=== PATIENT | female | born 1980 | race Caucasian/White ===

== ENCOUNTER 2018-03-13 00:15 | Emergency (ER) | payer SELFPAY ==
[2018-03-13] MEDS: AMOXICILLIN 250 MG CAPSULE. PO (01:35)
[2018-03-13] MEDS: HYDROcodone/APAP 5/325MG 1 TAB TABLET PO (01:36)
== END 2018-03-13 01:37 | disposition home or self-care (01) ==
LOC: ER 00:15
DX: K02.9 Dental caries, unspecified (principal); Z87.442 Personal history of urinary calculi; I25.2 Old myocardial infarction; Z88.2 Allergy status to sulfonamides; Z88.6 Allergy status to analgesic agent; Z91.041 Radiographic dye allergy status; Z91.040 Latex allergy status
CPT/HCPCS: 99283

== ENCOUNTER 2018-05-03 13:02 | Emergency (ER) | payer SELFPAY ==
[2018-05-03] MEDS: HYDROcodone/APAP 5/325MG 1 TAB TABLET PO (15:11)
[2018-05-03] MEDS: predniSONE 10 MG TABLET PO (15:11)
[2018-05-03] MEDS: METHOCARBAMOL 750 MG TABLET PO (15:11)
== END 2018-05-03 15:18 | disposition home or self-care (01) ==
LOC: ER 13:02
DX: S63.501A Unspecified sprain of right wrist, initial encounter (principal); M54.5 Low back pain; G89.29 Other chronic pain; E78.00 Pure hypercholesterolemia, unspecified; I10 Essential (primary) hypertension; I25.2 Old myocardial infarction; Z90.49 Acquired absence of other specified parts of digestive tract; Z90.710 Acquired absence of both cervix and uterus; Z88.2 Allergy status to sulfonamides; Z88.8 Allergy status to other drugs, medicaments and biological substances; Z88.6 Allergy status to analgesic agent; Z91.041 Radiographic dye allergy status; Z91.040 Latex allergy status; W01.0XXA Fall on same level from slipping, tripping and stumbling without subsequent striking against object, initial encounter; Y93.89 Activity, other specified; Y92.89 Other specified places as the place of occurrence of the external cause; Y99.8 Other external cause status
CPT/HCPCS: 73110; 99284; J7512

== ENCOUNTER 2018-06-27 15:14 | Emergency (ER) | payer SELFPAY ==
[~2018-06-27] VITALS: Ht 165.1 cm; Wt 83.0 kg
[~2018-06-27 15:14] MED LIST: AMOX500T PO; HYDR-2758 PO; HYDR-971 PO; METH-38 PO; PRED50TA PO
[2018-06-27] MEDS ORDERED: IV NORMAL SALINE 1000ML BAG 1,000 ML IV SCH (15:44)
[2018-06-27 15:54] LABS: BASO # 0.1 x10^3/uL (0.0-0.2); BASO % 1 % (0-3); EOS # 0.2 x10^3/uL (0.0-0.7); EOS % 2 % (0-3); HEMATOCRIT 41.5 % (36.0-47.0); HEMOGLOBIN 14.7 g/dL (12.0-15.5); LYMPH # 4.3 x10^3/uL (1.0-4.8); LYMPH % 42 % (24-48); MEAN CORPUSCULAR HEMOGLOBIN 33 pg (25-35); MEAN CORPUSCULAR HGB CONC 36 g/dL (31-37); MEAN CORPUSCULAR VOLUME 93 fL (79-100); MONO # 0.5 x10^3/uL (0.0-1.1); MONO % 5 % (0-9); NEUT # 5.2 x10^3uL (1.8-7.7); NEUT % 51 % (31-73); PLATELET COUNT 262 x10^3/uL (140-400); RED BLOOD COUNT 4.46 x10^6/uL (3.50-5.40); RED CELL DISTRIBUTION WIDTH 13.7 % (11.5-14.5); WHITE BLOOD COUNT 10.2 x10^3/uL (4.0-11.0)
[2018-06-27 16:03] LABS: PROTHROMBIN TIME PATIENT 11.3 SEC (11.7-14.0)
--- NOTE | 2018-06-27 16:04 | EKG ---
[facility] [address] [place] [address] Test Date: 2018-06-27 Test Time: 15:22:45 Pat Name: MIR MARTINEZ Department: Room: Gender: F Therapy Site Coordinator: : 1980 Requested By: CHAN EPPS Order Number: [id number] Reading MD: Chris Dillon MD Measurements Intervals Bonnie Rate: 65 P: 0 SC: 128 QRS: 51 QRSD: 80 T: 39 QT: 390 QTc: 406 Interpretive Statements SINUS RHYTHM Electronically Signed On 06-28-2018 12:46:38 CDT by Chris Dillon MD
[2018-06-27 16:05] LABS: D-DIMER 0.28 ug/mlFEU (0.00-0.50)
--- NOTE | 2018-06-27 16:12 | PHYS DOC ---
Past Medical History Past Medical History: A-Fib, Arrhythmia, High Cholesterol, Hypertension, Kidney Infection, Kidney Stone, Other Additional Past Medical Histor: POLYCYSTIC KIDNEY DISEASE Past Surgical History: Angioplasty, Appendectomy, Cholecystectomy, Hysterectomy , Other Additional Past Surgical Histo: CARDIAC STENTS,HEMORRHOID,BLADDER SLING Additional Information: 0.5 PPD Alcohol Use: None Drug Use: None Adult General Chief Complaint Chief Complaint: CHEST PAIN HPI HPI Patient is a 37 year old female presented to ER today for evaluation of left- sided chest pain that she has been experiencing for 2 days. She denies any cough , no fever. She denies any abdominal pain, no nausea vomiting. Patient said THE chest pain got worse with cough. She says she has history of atrial fibrillation, and she is only on propranolol for it. She is a smoker, she has history of hysterectomy as well. Patient denies any recent operation, no recent travel. Review of Systems Review of Systems Constitutional: Denies fever or chills [] Eyes: Denies change in visual acuity, redness, or eye pain [] HENT: Denies nasal congestion or sore throat [] Respiratory: Denies cough or shortness of breath [] Cardiovascular: Positive for chest pain GI: Denies abdominal pain, nausea, vomiting, bloody stools or diarrhea [] : Denies dysuria or hematuria [] Musculoskeletal: Denies back pain or joint pain [] Integument: Denies rash or skin lesions [] Neurologic: Denies headache, focal weakness or sensory changes [] Endocrine: Denies polyuria or polydipsia [] All other systems were reviewed and found to be within normal limits, except as documented in this note. Current Medications Current Medications Current Medications Medications (Trade) Dose Ordered Sig/Alexis Start Time Stop Time Status Last Admin Dose Admin Sodium Chloride 1,000 ml @ 1,000 mls/hr Q1H 06/27/18 15:44 06/27/18 16:43 DC 06/27/18 16:18 1,000 MLS/HR Allergies Allergies Allergies Coded Allergies Type Severity Reaction Last Updated Verified Iodinated Contrast- Oral and IV Dye Allergy Unknown 03/13/18 Yes NSAIDS (Non-Steroidal Anti-Inflamma Allergy Unknown 03/13/18 Yes Sulfa (Sulfonamide Antibiotics) Allergy Unknown 03/13/18 Yes ibuprofen Allergy Unknown 03/13/18 Yes latex Allergy Unknown 03/13/18 Yes Physical Exam Physical Exam Constitutional: Well developed, well nourished, no acute distress, non-toxic appearance. [] HENT: Normocephalic, atraumatic, bilateral external ears normal, oropharynx moist, no oral exudates, nose normal. [] Eyes: PERRLA, EOMI, conjunctiva normal, no discharge. [] Neck: Normal range of motion, no tenderness, supple, no stridor. [] Cardiovascular:Heart rate regular rhythm, no murmur [] Lungs & Thorax: Bilateral breath sounds clear to auscultation [] Abdomen: Bowel sounds normal, soft, no tenderness, no masses, no pulsatile masses. [] Skin: Warm, dry, no erythema, no rash. [] Back: No tenderness, no CVA tenderness. [] Extremities: No tenderness, no cyanosis, no clubbing, ROM intact, no edema. [] Neurologic: Alert and oriented X 3, normal motor function, normal sensory function, no focal deficits noted. [] Psychologic: Affect normal, judgement normal, mood normal. [] Current Patient Data Vital Signs Vital Signs Date Time Temp Pulse Resp B/P (MAP) Pulse Ox O2 Delivery O2 Flow Rate FiO2 06/27/18 15:36 97.9 64 20 119/86 (97) 99 Room Air 97.9 Lab Values Laboratory Tests Test 06/27/18 15:30 06/27/18 16:19 White Blood Count 10.2 x10^3/uL (4.0-11.0) Red Blood Count 4.46 x10^6/uL (3.50-5.40) Hemoglobin 14.7 g/dL (12.0-15.5) Hematocrit 41.5 % (36.0-47.0) Mean Corpuscular Volume 93 fL (79-100) Mean Corpuscular Hemoglobin 33 pg (25-35) Mean Corpuscular Hemoglobin Concent 36 g/dL (31-37) Red Cell Distribution Width 13.7 % (11.5-14.5) Platelet Count 262 x10^3/uL (140-400) Neutrophils (%) (Auto) 51 % (31-73) Lymphocytes (%) (Auto) 42 % (24-48) Monocytes (%) (Auto) 5 % (0-9) Eosinophils (%) (Auto) 2 % (0-3) Basophils (%) (Auto) 1 % (0-3) Neutrophils # (Auto) 5.2 x10^3uL (1.8-7.7) Lymphocytes # (Auto) 4.3 x10^3/uL (1.0-4.8) Monocytes # (Auto) 0.5 x10^3/uL (0.0-1.1) Eosinophils # (Auto) 0.2 x10^3/uL (0.0-0.7) Basophils # (Auto) 0.1 x10^3/uL (0.0-0.2) Prothrombin Time 11.3 SEC (11.7-14.0) L Prothrombin Time INR 0.9 (0.8-1.1) D-Dimer ([place]) 0.28 ug/mlFEU (0.00-0.50) Sodium Level 142 mmol/L (136-145) Potassium Level 4.1 mmol/L (3.5-5.1) Chloride Level 103 mmol/L (98-107) Carbon Dioxide Level 28 mmol/L (21-32) Anion Gap 11 (6-14) Blood Urea Nitrogen 13 mg/dL (7-20) Creatinine 0.8 mg/dL (0.6-1.0) Estimated GFR (Cockcroft-Gault) 80.7 BUN/Creatinine Ratio 16 (6-20) Glucose Level 87 mg/dL (70-99) Calcium Level 8.8 mg/dL (8.5-10.1) Magnesium Level 1.9 mg/dL (1.8-2.4) Total Bilirubin 0.2 mg/dL (0.2-1.0) Aspartate Amino Transferase (AST) 18 U/L (15-37) Alanine Aminotransferase (ALT) 31 U/L (14-59) Alkaline Phosphatase 80 U/L (46-116) Creatine Kinase 73 U/L (26-192) Creatine Kinase MB (Mass) 1.1 ng/mL (0.0-3.6) Creatine Kinase MB Relative Index % (0-4) Troponin I Quantitative < 0.017 ng/mL (0.000-0.055) TO-Nhs-B-Type Natriuretic Peptide 57 pg/mL (0-124) Total Protein 7.6 g/dL (6.4-8.2) Albumin 4.3 g/dL (3.4-5.0) Albumin/Globulin Ratio 1.3 (1.0-1.7) Lipase 140 U/L (73-393) Urine Collection Type Unknown Urine Color Yellow Urine Clarity Clear Urine pH 5.0 Urine Specific [place] 1.020 Urine Protein Negative mg/dL (NEG-TRACE) Urine Glucose (UA) Negative mg/dL (NEG) Urine Ketones (Stick) Negative mg/dL (NEG) Urine Blood Small (NEG) Urine Nitrite Negative (NEG) Urine Bilirubin Negative (NEG) Urine Urobilinogen Dipstick 0.2 mg/dL (0.2 mg/dL) Urine Leukocyte Esterase Negative (NEG) Urine RBC Occ /HPF (0-2) Urine WBC Occ /HPF (0-4) Urine Squamous Epithelial Cells Mod /LPF Urine Bacteria Few /HPF (0-FEW) Urine Mucus Mod /LPF Urine Opiates Screen Neg (NEG) Urine Methadone Screen Neg (NEG) Urine Barbiturates Neg (NEG) Urine Phencyclidine Screen Neg (NEG) Urine Amphetamine/Methamphetamine Neg (NEG) Urine Benzodiazepines Screen Neg (NEG) Urine Cocaine Screen Pos (NEG) Urine Cannabinoids Screen Neg (NEG) Urine Ethyl Alcohol Neg (NEG) Laboratory Tests 06/27/18 15:30 Laboratory Tests 06/27/18 15:30 EKG EKG EKG done at 15: 22 shown heart rate of 65 beats per minutes, normal sinus rhythm, NO STEMI. Radiology/Procedures Radiology/Procedures [][facility] [address] [place] [address] IMAGING REPORT Signed PATIENT: MIR MARTINEZ ACCOUNT: [id number] : 1980 LOCATION: ER AGE: 37 SEX: F EXAM STATUS: REG ER ORD. PHYSICIAN: CHAN EPPS DO REASON: CHEST PAIN PROCEDURE: PORTABLE CHEST 1V EXAM: Chest, single view. HISTORY: Chest pain. COMPARISON: None. FINDINGS: A frontal view of the chest is obtained. There is no infiltrate, pleural effusion or pneumothorax. The heart is normal in size. IMPRESSION: No acute pulmonary finding. Electronically signed by: Salena Sosa MD (06/27/2018 4:16 PM) [place] [id number] DICTATED and SIGNED BY: SALENA SOSA MD DATE: 06/27/18 7444 Course & Med Decision Making Course & Med Decision Making Pertinent Labs and Imaging studies reviewed. (See chart for details) [] Dragon Disclaimer Dragon Disclaimer This electronic medical record was generated, in whole or in part, using a voice recognition dictation system. Departure Departure Impression: Primary Impression: Chest pain Disposition: 01 HOME, SELF-CARE Condition: STABLE Referrals: NO PCP (PCP) FOLLOW UP WITH YOUR DOCTOR THIS WEEK Patient Instructions: Chest Pain (Nonspecific) CHAN EPPS DO Jun 27, 2018 16:12
[2018-06-27 16:15] LABS: CALCIUM 8.8 mg/dL (8.5-10.1); CREATININE 0.8 mg/dL (0.6-1.0); GFR 80.7; POTASSIUM 4.1 mmol/L (3.5-5.1)
[2018-06-27 16:17] VITALS: BP 148/83
--- NOTE | 2018-06-27 16:20 | RAD ---
EXAM: Chest, single view. HISTORY: Chest pain. COMPARISON: None. FINDINGS: A frontal view of the chest is obtained. There is no infiltrate, pleural effusion or pneumothorax. The heart is normal in size. IMPRESSION: No acute pulmonary finding. Electronically signed by: Salena Sosa MD (06/27/2018 4:16 PM) [place] [id number]
[2018-06-27 16:21] LABS: ALBUMIN 4.3 g/dL (3.4-5.0); ALBUMIN/GLOBULIN RATIO 1.3 (1.0-1.7); MAGNESIUM 1.9 mg/dL (1.8-2.4); TOTAL BILIRUBIN 0.2 mg/dL (0.2-1.0); TOTAL PROTEIN 7.6 g/dL (6.4-8.2)
[2018-06-27 16:30] LABS: BILIRUBIN,URINE NEGATIVE (NEG); CLARITY,URINE CLEAR; COLOR,URINE YELLOW; NITRITE,URINE NEGATIVE (NEG); PROTEIN,URINE NEGATIVE (NEG-TRACE); UROBILINOGEN,URINE 0.2 mg/dL (0.2 mg/dL)
[2018-06-27 16:36] LABS: BARBITURATES NEG (NEG); BENZODIAZEPINES NEG (NEG); CANNABINOIDS NEG (NEG); COCAINE POS (NEG); METHADONE NEG (NEG); OPIATES NEG (NEG); PHENCYCLIDINE NEG (NEG)
[2018-06-27 16:37] LABS: AMPHETAMINE/METHAMPHETAMINE NEG (NEG)
[2018-06-27 16:39] LABS: BACTERIA,URINE FEW /HPF (0-FEW); RBC,URINE OCC /HPF (0-2); SQUAMOUS EPITHELIAL CELL,UR MOD /LPF; WBC,URINE OCC /HPF (0-4)
[2018-06-27 16:44] LABS: CREATINE KINASE 73 U/L (26-192)
== END 2018-06-27 16:57 | disposition home or self-care (01) ==
LOC: ER 15:14
DX: R07.89 Other chest pain (principal); I48.91 Unspecified atrial fibrillation; E78.00 Pure hypercholesterolemia, unspecified; I10 Essential (primary) hypertension; Z90.49 Acquired absence of other specified parts of digestive tract; Z90.710 Acquired absence of both cervix and uterus; Z88.2 Allergy status to sulfonamides; Z88.6 Allergy status to analgesic agent; Z91.041 Radiographic dye allergy status; Z91.040 Latex allergy status
CPT/HCPCS: 36415; 71045; 80053; 80307; 81001; 82550; 82553; 83690; 83735; 83880; 84484; 85025; 85379; 85610; 93005; 99285; J7030; G0479

== ENCOUNTER 2018-07-27 10:09 | Emergency (ER) | payer SELFPAY ==
[~2018-07-27] VITALS: Ht 165.1 cm; Wt 82.6 kg
[2018-07-27 10:28] VITALS: BP 132/73
[2018-07-27] MEDS ORDERED: CLIN300C8 PO (10:51)
[2018-07-27] MEDS ORDERED: HYDR-971 PO (10:51)
--- NOTE | 2018-07-27 10:52 | PHYS DOC ---
Past Medical History Past Medical History: A-Fib, Arrhythmia, High Cholesterol, Hypertension, Kidney Infection, Kidney Stone, Other Additional Past Medical Histor: POLYCYSTIC KIDNEY DISEASE Past Surgical History: Angioplasty, Appendectomy, Cholecystectomy, Hysterectomy , Other Additional Past Surgical Histo: CARDIAC STENTS,HEMORRHOID,BLADDER SLING Additional Information: 0.5 PPD Alcohol Use: None Drug Use: None Adult General Chief Complaint Chief Complaint: DENTAL PROBLEM HPI HPI Patient is a 37 year old female who presents with a fractured tooth. She states that it is very painful. She is having dental surgery on Wednesday to have all of her teeth pulled and dentures placed. She denies fever, nausea or vomiting. Review of Systems Review of Systems Constitutional: Denies fever or chills [] Eyes: Denies change in visual acuity, redness, or eye pain [] HENT: See history of present illness Respiratory: Denies cough or shortness of breath [] Cardiovascular: No additional information not addressed in HPI [] Neurologic: Denies headache, focal weakness or sensory changes [] Endocrine: Denies polyuria or polydipsia [] All other systems were reviewed and found to be within normal limits, except as documented in this note. Allergies Allergies Allergies Coded Allergies Type Severity Reaction Last Updated Verified Iodinated Contrast- Oral and IV Dye Allergy Unknown 03/13/18 Yes NSAIDS (Non-Steroidal Anti-Inflamma Allergy Unknown 03/13/18 Yes Sulfa (Sulfonamide Antibiotics) Allergy Unknown 03/13/18 Yes ibuprofen Allergy Unknown 03/13/18 Yes latex Allergy Unknown 03/13/18 Yes Physical Exam Physical Exam Constitutional: Well developed, well nourished, no acute distress, non-toxic appearance. [] HENT: Normocephalic, atraumatic, bilateral external ears normal, tooth #16 is fractured Eyes: PERRLA, EOMI, conjunctiva normal, no discharge. [] Neck: Normal range of motion, no tenderness, supple, no stridor. [] Cardiovascular:Heart rate regular rhythm, no murmur [] Lungs & Thorax: Bilateral breath sounds clear to auscultation [] Neurologic: Alert and oriented X 3, normal motor function, normal sensory function, no focal deficits noted. [] Psychologic: Affect normal, judgement normal, mood normal. [] Current Patient Data Vital Signs Vital Signs Date Time Temp Pulse Resp B/P (MAP) Pulse Ox O2 Delivery O2 Flow Rate FiO2 10/17/18 10:28 98.3 86 16 132/73 (92) 98 Room Air 98.3 EKG EKG [] Radiology/Procedures Radiology/Procedures [] Course & Med Decision Making Course & Med Decision Making Pertinent Labs and Imaging studies reviewed. (See chart for details) [] Dragon Disclaimer Dragon Disclaimer This electronic medical record was generated, in whole or in part, using a voice recognition dictation system. Departure Departure Impression: Primary Impression: Pain, dental Additional Impressions: Fractured tooth Abscess Disposition: HOME, SELF-CARE Condition: STABLE Referrals: UNKNOWN PCP NAME (PCP) Patient Instructions: Abscess, Dental Extraction, Care After Additional Instructions: Take the antibiotic as prescribed. Keep your follow-up appointment with your dentist on Wednesday. You've been prescribed pain medication. Do not drive or operate heavy machinery while taking this medication. Use salt water mouth rinses multiple times daily. Scripts Hydrocodone/Apap 5-325 (NORCO 5-325 TABLET) 1 Each Tablet 1 TAB PO PRN Q6HRS PRN for PAIN, #20 TAB 0 Refills Prov: SHANA KELLY APRN 07/27/18 Clindamycin Hcl (CLINDAMYCIN HCL) 300 Mg Capsule 1 CAP PO TID, #30 CAP Prov: SHANA KELLY APRN 07/27/18 Problem Qualifiers SHANA KELLY APRN Jul 27, 2018 10:52
== END 2018-07-27 10:58 | disposition home or self-care (01) ==
LOC: ER 10:09
DX: S02.5XXA Fracture of tooth (traumatic), initial encounter for closed fracture (principal); K04.7 Periapical abscess without sinus; I48.91 Unspecified atrial fibrillation; E78.00 Pure hypercholesterolemia, unspecified; I10 Essential (primary) hypertension; F17.200 Nicotine dependence, unspecified, uncomplicated; Z87.442 Personal history of urinary calculi; Z90.49 Acquired absence of other specified parts of digestive tract; Z90.710 Acquired absence of both cervix and uterus; Z90.89 Acquired absence of other organs; Z91.041 Radiographic dye allergy status; Z91.040 Latex allergy status; X58.XXXA Exposure to other specified factors, initial encounter; Y93.89 Activity, other specified; Y92.89 Other specified places as the place of occurrence of the external cause; Y99.8 Other external cause status; Z88.6 Allergy status to analgesic agent; Z88.2 Allergy status to sulfonamides; Z88.8 Allergy status to other drugs, medicaments and biological substances
CPT/HCPCS: 99283

== ENCOUNTER 2018-09-12 13:18 | Emergency (ER) | payer SELFPAY ==
[~2018-09-12] VITALS: Ht 165.1 cm; Wt 82.6 kg
[~2018-09-12 13:18] MED LIST changes: +CLIN300C8 PO; -HYDR-2758 PO; +HYDR-2761 PO; +HYDR-3164 PO; -HYDR-971 PO
[2018-09-12] MEDS ORDERED: IV NORMAL SALINE 1000ML BAG 1,000 ML IV SCH (13:54)
[2018-09-12] MEDS ORDERED: MORPHINE SULFATE 4 MG/ML VIAL. IV ONE (14:15)
[2018-09-12 14:16] LABS: BASO # 0.1 x10^3/uL (0.0-0.2); BASO % 1 % (0-3); EOS # 0.1 x10^3/uL (0.0-0.7); EOS % 2 % (0-3); HEMATOCRIT 42.5 % (36.0-47.0); HEMOGLOBIN 15.1 g/dL (12.0-15.5); LYMPH # 2.4 x10^3/uL (1.0-4.8); LYMPH % 33 % (24-48); MEAN CORPUSCULAR HEMOGLOBIN 33 pg (25-35); MEAN CORPUSCULAR HGB CONC 36 g/dL (31-37); MEAN CORPUSCULAR VOLUME 92 fL (79-100); MONO # 0.5 x10^3/uL (0.0-1.1); MONO % 7 % (0-9); NEUT % 57 % (31-73); PLATELET COUNT 208 x10^3/uL (140-400); RED BLOOD COUNT 4.65 x10^6/uL (3.50-5.40); RED CELL DISTRIBUTION WIDTH 13.5 % (11.5-14.5); WHITE BLOOD COUNT 7.1 x10^3/uL (4.0-11.0)
[2018-09-12 14:18] LABS: BILIRUBIN,URINE SMALL (NEG); CLARITY,URINE CLEAR; COLOR,URINE ORANGE; NITRITE,URINE POSITIVE (NEG); PROTEIN,URINE NEGATIVE (NEG-TRACE)
--- NOTE | 2018-09-12 14:22 | PHYS DOC ---
Past Medical History Past Medical History: A-Fib, Arrhythmia, High Cholesterol, Hypertension, Kidney Infection, Kidney Stone, Other Additional Past Medical Histor: POLYCYSTIC KIDNEY DISEASE Past Surgical History: Angioplasty, Appendectomy, Cholecystectomy, Hysterectomy , Other Additional Past Surgical Histo: CARDIAC STENTS,HEMORRHOID,BLADDER SLING Alcohol Use: None Drug Use: None Adult General Chief Complaint Chief Complaint: FLANK PAIN HPI HPI Patient is a 37-year-old female who presents to the emergency department for evaluation. She states that about a week ago she started experiencing some hematuria, as well as some mild flank pain. She has been taking Pyridium for the past 2 days, but This morning she began experiencing or severe left flank pain, along with some hematuria. She has a history of kidney stones and states that this pain feels similar. She states all her prior stones of required intervention to remove, none have passed spontaneously. She has not had any vomiting, diarrhea, fevers or chills. She has had a prior hysterectomy. She states she is allergic to NSAIDs, with not anaphylactic reaction to ibuprofen. There are no alleviating or exacerbating factors to the patient's symptoms. Review of Systems Review of Systems Constitutional: Denies fever or chills [] Eyes: Denies change in visual acuity, redness, or eye pain [] HENT: Denies nasal congestion or sore throat [] Respiratory: Denies cough or shortness of breath [] Cardiovascular: No additional information not addressed in HPI [] GI: Denies abdominal pain, nausea, vomiting, bloody stools or diarrhea [] : Denies dysuria or frequency[] Musculoskeletal: Denies back pain or joint pain [] Integument: Denies rash or skin lesions [] Neurologic: Denies headache, focal weakness or sensory changes [] Endocrine: Denies polyuria or polydipsia [] All other systems were reviewed and found to be within normal limits, except as documented in this note. Current Medications Current Medications Current Medications Medications (Trade) Dose Ordered Sig/[facility] Start Time Stop Time Status Last Admin Dose Admin Ceftriaxone Sodium (Rocephin) 1 gm 1X ONCE 09/12/18 15:00 09/12/18 15:01 DC Morphine Sulfate (Morphine Sulfate) 4 mg 1X ONCE 09/12/18 14:15 09/12/18 14:16 DC 09/12/18 14:20 4 MG Ondansetron HCl (Zofran) 4 mg 1X ONCE 12/3/18 14:30 09/12/18 14:31 DC 09/12/18 14:42 4 MG Sodium Chloride 1,000 ml @ 1,000 mls/hr Q1H 09/12/18 13:54 09/12/18 14:53 DC 09/12/18 14:20 1,000 MLS/HR Allergies Allergies Allergies Coded Allergies Type Severity Reaction Last Updated Verified Iodinated Contrast- Oral and IV Dye Allergy Unknown 03/13/18 Yes NSAIDS (Non-Steroidal Anti-Inflamma Allergy Unknown 03/13/18 Yes Sulfa (Sulfonamide Antibiotics) Allergy Unknown 03/13/18 Yes ibuprofen Allergy Unknown 03/13/18 Yes latex Allergy Unknown 03/13/18 Yes Physical Exam Physical Exam PHYSICAL EXAM: CONSTITUTIONAL: Well developed, well nourished HEAD: normocephalic, atraumatic EENT: PERRL, EOMI. Conjunctivae normal color, sclerae non-icteric; moist mucous membranes. NECK: Supple, non-tender; no meningismus. LUNGS: Lungs CTA, breathing even and unlabored. Normal air movement. HEART: Regular rate and rhythm, no murmur CHEST: No deformity; non-tender ABDOMEN: The abdomen is soft, there is mild tenderness to palpation left abdomen diffusely, which reproduces the patient's pain. The remainder the abdomen is soft and non-tender, no masses or bruits. EXTREM: Normal ROM; no deformity, no calf tenderness. Normal pulses palpable in all extremities. There is no pedal edema. SKIN: No rash; no diaphoresis NEURO: Alert; normal speech and cognition; CN's grossly intact; strength grossly intact without focal deficit. BACK: There is mild left-sided CVA TTP. Current Patient Data Vital Signs Vital Signs Date Time Temp Pulse Resp B/P (MAP) Pulse Ox O2 Delivery O2 Flow Rate FiO2 09/12/18 14:30 84 18 109/65 (80) 96 Room Air 09/12/18 13:41 98.1 98.1 Lab Values Laboratory Tests Test 09/12/18 13:30 09/12/18 14:05 Urine Collection Type Unknown Urine Color [place] Urine Clarity Clear Urine pH 6.0 Urine Specific [place] >=1.030 Urine Protein Negative mg/dL (NEG-TRACE) Urine Glucose (UA) Negative mg/dL (NEG) Urine Ketones (Stick) Trace mg/dL (NEG) Urine Blood Large (NEG) Urine Nitrite Positive (NEG) Urine Bilirubin Small (NEG) Urine Urobilinogen Dipstick 1.0 mg/dL (0.2 mg/dL) Urine Leukocyte Esterase Trace (NEG) Urine RBC 20-40 /HPF (0-2) Urine WBC Occ /HPF (0-4) Urine Squamous Epithelial Cells Many /LPF Urine Bacteria Moderate /HPF (0-FEW) Urine Mucus Marked /LPF White Blood Count 7.1 x10^3/uL (4.0-11.0) Red Blood Count 4.65 x10^6/uL (3.50-5.40) Hemoglobin 15.1 g/dL (12.0-15.5) Hematocrit 42.5 % (36.0-47.0) Mean Corpuscular Volume 92 fL (79-100) Mean Corpuscular Hemoglobin 33 pg (25-35) Mean Corpuscular Hemoglobin Concent 36 g/dL (31-37) Red Cell Distribution Width 13.5 % (11.5-14.5) Platelet Count 208 x10^3/uL (140-400) Neutrophils (%) (Auto) 57 % (31-73) Lymphocytes (%) (Auto) 33 % (24-48) Monocytes (%) (Auto) 7 % (0-9) Eosinophils (%) (Auto) 2 % (0-3) Basophils (%) (Auto) 1 % (0-3) Neutrophils # (Auto) 4.0 x10^3uL (1.8-7.7) Lymphocytes # (Auto) 2.4 x10^3/uL (1.0-4.8) Monocytes # (Auto) 0.5 x10^3/uL (0.0-1.1) Eosinophils # (Auto) 0.1 x10^3/uL (0.0-0.7) Basophils # (Auto) 0.1 x10^3/uL (0.0-0.2) Sodium Level 139 mmol/L (136-145) Potassium Level 3.9 mmol/L (3.5-5.1) Chloride Level 102 mmol/L (98-107) Carbon Dioxide Level 29 mmol/L (21-32) Anion Gap 8 (6-14) Blood Urea Nitrogen 9 mg/dL (7-20) Creatinine 0.7 mg/dL (0.6-1.0) Estimated GFR (Cockcroft-Gault) 94.2 BUN/Creatinine Ratio 13 (6-20) Glucose Level 93 mg/dL (70-99) Calcium Level 8.8 mg/dL (8.5-10.1) Total Bilirubin 0.3 mg/dL (0.2-1.0) Aspartate Amino Transferase (AST) 23 U/L (15-37) Alanine Aminotransferase (ALT) 38 U/L (14-59) Alkaline Phosphatase 72 U/L (46-116) Total Protein 7.7 g/dL (6.4-8.2) Albumin 3.9 g/dL (3.4-5.0) Albumin/Globulin Ratio 1.0 (1.0-1.7) Lipase 69 U/L (73-393) L Laboratory Tests 09/12/18 14:05 Laboratory Tests 09/12/18 14:05 EKG EKG [] Radiology/Procedures Radiology/Procedures [PROCEDURE: CT ABDOMEN PELVIS WO CONTRAST CT of the abdomen and pelvis without contrast, 09/12/2018: HISTORY: Left flank pain noncontrast scans were obtained. The unopacified liver is unremarkable. The gallbladder is surgically absent. No pancreatic abnormality is seen. The spleen is of normal size. No renal calculi are evident. The renal collecting systems and ureters are unremarkable. The abdominal aorta is unremarkable. No retroperitoneal or pelvic adenopathy is evident. Several small mesenteric lymph nodes are seen without definite pathologic enlargement. The uterus is surgically absent. There has been a prior appendectomy. The bowel loops are not dilated. No free fluid or free air is evident in the abdomen or pelvis. IMPRESSION: No acute abdominal or pelvic abnormality is detected.] Course & Med Decision Making Course & Med Decision Making Pertinent Labs and Imaging studies reviewed. (See chart for details) [3:20 PM: The patient's condition remains stable. I discussed the test results with the patient. I do not suspect that she has a urinalysis on further evaluation of her urine, as the nitrites are likely reaction to the use of Pyridium. The patient does not have significant leukocytosis, and bacteria could be contamination, given the large squamous cells. I discussed importance of follow-up with her urologist at , whom the patient has a ready establish care with, the need for close follow-up and return precautions.] Dragon Disclaimer Dragon Disclaimer This electronic medical record was generated, in whole or in part, using a voice recognition dictation system. Departure Departure Impression: Primary Impression: Flank pain Disposition: HOME, SELF-CARE Condition: STABLE Referrals: UNKNOWN PCP NAME (PCP) Patient Instructions: Flank Pain Additional Instructions: Tylenol 650-1000 mg every 6 hours may help improve your symptoms. Applying a heating pad to the affected area may help improve your symptoms. The prescribed medications may cause drowsiness-use caution while taking. Scripts Cyclobenzaprine Hcl (CYCLOBENZAPRINE HCL) 10 Mg Tablet 1 TAB PO TID PRN for PAIN, #30 TAB Prov: FANY TOUSSAINT MD 09/12/18 FANY TOUSSAINT MD Sep 12, 2018 14:22
[2018-09-12 14:25] LABS: BACTERIA,URINE MODERATE /HPF (0-FEW); RBC,URINE 20-40 /HPF (0-2); SQUAMOUS EPITHELIAL CELL,UR MANY /LPF; WBC,URINE OCC /HPF (0-4)
[2018-09-12 14:27] LABS: CALCIUM 8.8 mg/dL (8.5-10.1); CREATININE 0.7 mg/dL (0.6-1.0); GFR 94.2; POTASSIUM 3.9 mmol/L (3.5-5.1)
[2018-09-12 14:30] VITALS: BP 109/65
[2018-09-12] MEDS ORDERED: ONDANSETRON PF 4 MG/2 ML VIAL. IV ONE (14:30)
[2018-09-12 14:33] LABS: ALBUMIN 3.9 g/dL (3.4-5.0); TOTAL BILIRUBIN 0.3 mg/dL (0.2-1.0); TOTAL PROTEIN 7.7 g/dL (6.4-8.2)
[2018-09-12] MEDS ORDERED: cefTRIAXone IV Push 1 GM VIAL. IVP ONE (15:00)
--- NOTE | 2018-09-12 15:02 | RAD ---
CT of the abdomen and pelvis without contrast, 09/12/2018: HISTORY: Left flank pain noncontrast scans were obtained. The unopacified liver is unremarkable. The gallbladder is surgically absent. No pancreatic abnormality is seen. The spleen is of normal size. No renal calculi are evident. The renal collecting systems and ureters are unremarkable. The abdominal aorta is unremarkable. No retroperitoneal or pelvic adenopathy is evident. Several small mesenteric lymph nodes are seen without definite pathologic enlargement. The uterus is surgically absent. There has been a prior appendectomy. The bowel loops are not dilated. No free fluid or free air is evident in the abdomen or pelvis. IMPRESSION: No acute abdominal or pelvic abnormality is detected. PQRS Compliance Statement: One or more of the following individualized dose reduction techniques were utilized for this examination: 1. Automated exposure control 2. Adjustment of the mA and/or kV according to patient size 3. Use of iterative reconstruction technique Electronically signed by: Fabrice Ledesma MD (09/12/2018 2:58 PM) [facility]
[2018-09-12] MEDS ORDERED: CYCL10TA2 PO (15:22)
== END 2018-09-12 15:30 | disposition home or self-care (01) ==
LOC: ER 13:18
DX: R31.9 Hematuria, unspecified (principal); R10.9 Unspecified abdominal pain; I48.91 Unspecified atrial fibrillation; E78.00 Pure hypercholesterolemia, unspecified; I10 Essential (primary) hypertension; Z90.49 Acquired absence of other specified parts of digestive tract; Z90.89 Acquired absence of other organs; Z90.710 Acquired absence of both cervix and uterus; Z87.442 Personal history of urinary calculi; Z88.8 Allergy status to other drugs, medicaments and biological substances; Z88.2 Allergy status to sulfonamides; Z88.6 Allergy status to analgesic agent; Z91.040 Latex allergy status; Z91.041 Radiographic dye allergy status
CPT/HCPCS: 36415; 74176; 80053; 81001; 83690; 85025; 96374; 96375; 99284; J2270; J2405; J7030

== ENCOUNTER 2018-10-24 13:48 | Emergency (ER) | payer SELFPAY ==
[~2018-10-24] VITALS: Ht 165.1 cm; Wt 83.0 kg
[~2018-10-24 13:48] MED LIST changes: +CYCL10TA2 PO
[2018-10-24] MEDS ORDERED: OXYC1TAB15 PO (14:42)
[2018-10-24] MEDS ORDERED: AMOX500T PO (14:42)
[2018-10-24] MEDS: oxyCODONE/APAP 5/325 1 TAB TABLET PO ONE (15:01)
[2018-10-24] MEDS: AMOXICILLIN 250 MG CAPSULE. PO ONE (15:01)
--- NOTE | 2018-10-24 15:02 | PHYS DOC ---
Past Medical History Past Medical History: A-Fib, Arrhythmia, High Cholesterol, Hypertension, Kidney Infection, Kidney Stone, Other Additional Past Medical Histor: POLYCYSTIC KIDNEY DISEASE Past Surgical History: Angioplasty, Appendectomy, Cholecystectomy, Hysterectomy , Other Additional Past Surgical Histo: CARDIAC STENTS,HEMORRHOID,BLADDER SLING Additional Information: 0.5 PPD Alcohol Use: None Drug Use: None Adult General Chief Complaint Chief Complaint: DENTAL PROBLEM HPI HPI Patient is a 37 year old female who presents with dental pain. Patient was evaluated by a dentist last week. She states she had 2 fillings placed. She also reports that both of the filling subsequently fell out over the course of the last week. She presents to the ER today complaining of worsening pain at the fillings. These are located in the right mandibular and maxillary areas. No fever or chills. No neck stiffness. No difficulty breathing or swallowing. Review of Systems Review of Systems Constitutional: Denies fever or chills Eyes: Denies change in visual acuity HENT: Denies nasal congestion or sore throat GI: Denies abdominal pain Integument: Denies rash Neurologic: Denies headache All other systems were reviewed and found to be within normal limits, except as documented in this note. Current Medications Current Medications Current Medications Medications (Trade) Dose Ordered Sig/Alexis Start Time Stop Time Status Last Admin Dose Admin Amoxicillin (Amoxil) 500 mg 1X ONCE 10/24/18 14:45 10/24/18 14:46 DC Oxycodone/ Acetaminophen (Percocet 5/325) 2 tab 1X ONCE 10/24/18 14:45 10/24/18 14:46 DC Allergies Allergies Allergies Coded Allergies Type Severity Reaction Last Updated Verified Iodinated Contrast- Oral and IV Dye Allergy Unknown 03/13/18 Yes NSAIDS (Non-Steroidal Anti-Inflamma Allergy Unknown 03/13/18 Yes Sulfa (Sulfonamide Antibiotics) Allergy Unknown 03/13/18 Yes ibuprofen Allergy Unknown 03/13/18 Yes latex Allergy Unknown 03/13/18 Yes Physical Exam Physical Exam Constitutional: Well developed, well nourished, no acute distress, non-toxic appearance HENT: Normocephalic, atraumatic, bilateral external ears normal, oropharynx moist Eyes: PERRLA, EOMI, conjunctiva normal Neck: Normal range of motion, no tenderness, supple Skin: Warm, dry, no erythema Neurologic: Alert and oriented X 3, Psychologic: Affect normal Current Patient Data Vital Signs Vital Signs Date Time Temp Pulse Resp B/P (MAP) Pulse Ox O2 Delivery O2 Flow Rate FiO2 10/24/18 14:23 97.5 87 20 123/80 (94) 98 Room Air 97.5 EKG EKG [] Radiology/Procedures Radiology/Procedures [] Course & Med Decision Making Course & Med Decision Making Pertinent Labs and Imaging studies reviewed. (See chart for details) Patient is evaluated in the ER for pain secondary to multiple dental caries. No drainable abscess present on exam. Floor of the mouth is soft. In the ER, the patient was started on amoxicillin and given PO pain medications. She is discharged home on the same and advised to f/u with dentist as soon as possible. Opiate precautions were discussed and all of her questions were answered prior to discharge home. She is not driving herself home today. Dragon Disclaimer Dragon Disclaimer This electronic medical record was generated, in whole or in part, using a voice recognition dictation system. Departure Departure Impression: Primary Impression: Pain, dental Additional Impression: Dental caries Disposition: HOME, SELF-CARE Condition: GOOD Patient Instructions: Dental Pain, Dental Caries Scripts Amoxicillin (AMOXICILLIN) 500 Mg Tablet 500 MG PO TID for 7 Days, #21 TAB 0 Refills Prov: GONZALO RINALDI DO 10/24/18 Oxycodone/Apap 5-325 (PERCOCET 5-325 MG TABLET ) 1 Each Tablet 1-2 EACH PO PRN TID PRN for SEVERE PAIN, #16 TAB pain Prov: GONZALO RINALDI DO 10/24/18 Problem Qualifiers GONZALO RINALDI DO Oct 24, 2018 15:02
[2018-10-24 15:05] VITALS: BP 154/90
== END 2018-10-24 15:05 | disposition home or self-care (01) ==
LOC: ER 13:48
DX: K02.9 Dental caries, unspecified (principal); I48.91 Unspecified atrial fibrillation; E78.00 Pure hypercholesterolemia, unspecified; I10 Essential (primary) hypertension; Z87.442 Personal history of urinary calculi; Z90.49 Acquired absence of other specified parts of digestive tract; Z90.710 Acquired absence of both cervix and uterus; Z90.89 Acquired absence of other organs; F17.200 Nicotine dependence, unspecified, uncomplicated; Z88.2 Allergy status to sulfonamides; Z88.8 Allergy status to other drugs, medicaments and biological substances; Z88.6 Allergy status to analgesic agent; Z91.041 Radiographic dye allergy status; Z91.040 Latex allergy status
CPT/HCPCS: 99283

== ENCOUNTER 2018-12-26 14:22 | Emergency (ER) | payer SELFPAY ==
[~2018-12-26] VITALS: Ht 165.1 cm; Wt 84.8 kg
[~2018-12-26 14:22] MED LIST changes: +OXYC1TAB15 PO
[2018-12-26 15:24] VITALS: BP 117/79
[2018-12-26] MEDS ORDERED: IV NORMAL SALINE 1000ML BAG 1,000 ML IV SCH (16:19)
[2018-12-26 16:30] LABS: BILIRUBIN,URINE NEGATIVE (NEG); CLARITY,URINE CLEAR; COLOR,URINE YELLOW; NITRITE,URINE NEGATIVE (NEG); PH,URINE 5.5; PROTEIN,URINE NEGATIVE (NEG-TRACE); UROBILINOGEN,URINE 0.2 mg/dL (0.2 mg/dL)
[2018-12-26] MEDS ORDERED: ONDANSETRON PF 4 MG/2 ML VIAL. IV ONE (16:30)
--- NOTE | 2018-12-26 16:38 | PHYS DOC ---
Past Medical History Past Medical History: A-Fib, Arrhythmia, High Cholesterol, Hypertension, Kidney Infection, Kidney Stone, Other Additional Past Medical Histor: POLYCYSTIC KIDNEY DISEASE Past Surgical History: Angioplasty, Appendectomy, Cholecystectomy, Hysterectomy , Other Additional Past Surgical Histo: CARDIAC STENTS,HEMORRHOID,BLADDER SLING Smoking: Cigarettes Additional Information: 10/12 PPD. Alcohol Use: Occasionally Drug Use: None Adult General Chief Complaint Chief Complaint: ABDOMINAL PAIN HPI HPI Pt is a 38-year-old female who presents to the emergency department for evaluation. She states the past 2 days, she has had nausea or vomiting and diarrhea, as well as some generalized abdominal. She reports malodorous belching. She has not had any fevers or chills. She has had some nasal congestion and a cough productive of greenish sputum as well. She has not had any urinary symptoms. She has not had any black or bloody stools, or bloody emesis. She denies any recent travel or antibiotic use. There are no alleviating or exacerbating factors to her symptoms otherwise. Review of Systems Review of Systems Constitutional: Denies fever or chills [] Eyes: Denies change in visual acuity, redness, or eye pain [] HENT: Denies nasal congestion or sore throat [] Respiratory: Denies cough or shortness of breath [] Cardiovascular:The patient denies any shortness of breath, chest pain, palpitations, or orthopnea [] GI: No additional information not addressed in HPI [] : Denies dysuria or hematuria [] Musculoskeletal: Denies back pain or joint pain [] Integument: Denies rash or skin lesions [] Neurologic: Denies headache, focal weakness or sensory changes [] Endocrine: Denies polyuria or polydipsia [] All other systems were reviewed and found to be within normal limits, except as documented in this note. Current Medications Current Medications Current Medications Medications (Trade) Dose Ordered Sig/Alexis Start Time Stop Time Status Last Admin Dose Admin Ondansetron HCl (Zofran) 4 mg 1X ONCE 12/26/18 16:30 12/26/18 16:31 DC Sodium Chloride 1,000 ml @ 1,000 mls/hr Q1H 12/26/18 16:19 12/26/18 17:18 Allergies Allergies Allergies Coded Allergies Type Severity Reaction Last Updated Verified Iodinated Contrast- Oral and IV Dye Allergy Unknown 03/13/18 Yes NSAIDS (Non-Steroidal Anti-Inflamma Allergy Unknown 03/13/18 Yes Sulfa (Sulfonamide Antibiotics) Allergy Unknown 03/13/18 Yes ibuprofen Allergy Unknown 03/13/18 Yes latex Allergy Unknown 03/13/18 Yes Physical Exam Physical Exam PHYSICAL EXAM: CONSTITUTIONAL: Well developed, well nourished HEAD: normocephalic, atraumatic EENT: PERRL, EOMI. Conjunctivae normal color, sclerae non-icteric; moist mucous membranes. NECK: Supple, non-tender; no meningismus. LUNGS: Lungs CTA, breathing even and unlabored. Normal air movement. HEART: Regular rate and rhythm, no murmur CHEST: No deformity; non-tender ABDOMEN: The abdomen is soft, there is mild diffuse tenderness to palpation of the abdomen, without focal tenderness, rebound, or guarding. EXTREM: Normal ROM; no deformity, no calf tenderness. Normal pulses palpable in all extremities. There is no pedal edema. SKIN: No rash; no diaphoresis NEURO: Alert; normal speech and cognition; CN's grossly intact; strength grossly intact without focal deficit. BACK: No CVA TTP. Current Patient Data Vital Signs Vital Signs Date Time Temp Pulse Resp B/P (MAP) Pulse Ox O2 Delivery O2 Flow Rate FiO2 12/26/18 15:24 97.5 95 16 117/79 (92) 96 Room Air 97.5 Lab Values Laboratory Tests Test 12/26/18 16:17 Influenza Type A Antigen Negative (NEGATIVE) Influenza Type B Antigen Negative (NEGATIVE) EKG EKG [] Radiology/Procedures Radiology/Procedures [] Course & Med Decision Making Course & Med Decision Making Pertinent Labs studies reviewed. (See chart for details) [5:10 PM: The patient reportedly mention to the nurse that she did not feel she was getting the care that she needed an left the emergency department AGAINST MEDICAL ADVICE. She declined to sign any AMA paper. The patient had already left the emergency department before I was aware that she had any issues with the plan of care, or had an opportunity to speak with the patient.] Dragon Disclaimer Dragon Disclaimer This electronic medical record was generated, in whole or in part, using a voice recognition dictation system. Departure Departure Impression: Primary Impression: Abdominal pain Disposition: AGAINST MEDICAL ADVICE Condition: STABLE Referrals: UNKNOWN PCP NAME (PCP) FANY TOUSSAINT MD Dec 26, 2018 16:38
[2018-12-26 16:47] LABS: INFLUENZA A PATIENT NEGATIVE (NEGATIVE); INFLUENZA B PATIENT NEGATIVE (NEGATIVE)
[2018-12-26 17:09] LABS: BASO # 0.1 x10^3/uL (0.0-0.2); BASO % 1 % (0-3); EOS # 0.3 x10^3/uL (0.0-0.7); EOS % 2 % (0-3); HEMATOCRIT 44.9 % (36.0-47.0); HEMOGLOBIN 15.4 g/dL (12.0-15.5); LYMPH # 3.8 x10^3/uL (1.0-4.8); LYMPH % 24 % (24-48); MEAN CORPUSCULAR HEMOGLOBIN 32 pg (25-35); MEAN CORPUSCULAR HGB CONC 34 g/dL (31-37); MEAN CORPUSCULAR VOLUME 92 fL (79-100); MONO # 0.8 x10^3/uL (0.0-1.1); MONO % 5 % (0-9); NEUT # 11.3 x10^3uL (1.8-7.7); NEUT % 69 % (31-73); PLATELET COUNT 258 x10^3/uL (140-400); RED BLOOD COUNT 4.87 x10^6/uL (3.50-5.40); RED CELL DISTRIBUTION WIDTH 13.3 % (11.5-14.5); WHITE BLOOD COUNT 16.3 x10^3/uL (4.0-11.0)
[2018-12-26 17:16] LABS: CALCIUM 8.9 mg/dL (8.5-10.1); CREATININE 0.9 mg/dL (0.6-1.0); GFR 70.1; POTASSIUM 3.9 mmol/L (3.5-5.1)
[2018-12-26 17:22] LABS: ALBUMIN 4.3 g/dL (3.4-5.0); ALBUMIN/GLOBULIN RATIO 1.2 (1.0-1.7); TOTAL BILIRUBIN 0.3 mg/dL (0.2-1.0); TOTAL PROTEIN 7.8 g/dL (6.4-8.2)
[2018-12-26 17:25] LABS: BACTERIA,URINE FEW /HPF (0-FEW); SQUAMOUS EPITHELIAL CELL,UR OCC /LPF
== END 2018-12-26 20:44 | disposition left against medical advice (07) ==
LOC: ER 14:22
DX: R10.84 Generalized abdominal pain (principal); R11.2 Nausea with vomiting, unspecified; R19.7 Diarrhea, unspecified; R09.81 Nasal congestion; I48.91 Unspecified atrial fibrillation; E78.00 Pure hypercholesterolemia, unspecified; I10 Essential (primary) hypertension; Q61.3 Polycystic kidney, unspecified; F17.210 Nicotine dependence, cigarettes, uncomplicated; Z87.442 Personal history of urinary calculi; Z90.89 Acquired absence of other organs; Z90.49 Acquired absence of other specified parts of digestive tract; Z90.710 Acquired absence of both cervix and uterus; Z98.61 Coronary angioplasty status; Z91.041 Radiographic dye allergy status; Z88.6 Allergy status to analgesic agent; Z88.2 Allergy status to sulfonamides; Z91.040 Latex allergy status
CPT/HCPCS: 36415; 80053; 81001; 83690; 85025; 87804; 99283

== ENCOUNTER 2019-04-07 07:55 | Emergency (ER) | payer SELFPAY ==
[~2019-04-07] VITALS: Ht 165.1 cm; Wt 87.5 kg
[2019-04-07 08:03] VITALS: BP 119/81
--- NOTE | 2019-04-07 08:29 | PHYS DOC ---
Past Medical History Past Medical History: A-Fib, Arrhythmia, High Cholesterol, Hypertension, Kidney Infection, Kidney Stone, Other Additional Past Medical Histor: POLYCYSTIC KIDNEY DISEASE Past Surgical History: Angioplasty, Appendectomy, Cholecystectomy, Hysterectomy, Other Additional Past Surgical Histo: CARDIAC STENTS,HEMORRHOID,BLADDER SLING Alcohol Use: Occasionally Drug Use: None Adult General Chief Complaint Chief Complaint: COUGH HPI HPI Patient is a 38 year old female who presents with a dry cough for 1 week. 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 Denies any fever. She states she is a smoker. She states she is currently on Zyrtec with no relief Review of Systems Review of Systems Constitutional: Denies fever or chills [] Eyes: Denies change in visual acuity, redness, or eye pain [] HENT: Denies nasal congestion or sore throat [] Respiratory: Reports cough, denies shortness of breath [] Cardiovascular: No additional information not addressed in HPI [] GI: Denies abdominal pain, nausea, vomiting, bloody stools or diarrhea [] : Denies dysuria or hematuria [] Musculoskeletal: Denies back pain or joint pain [] Integument: Denies rash or skin lesions [] Neurologic: Denies headache, focal weakness or sensory changes [] All other systems were reviewed and found to be within normal limits, except as documented in this note. Allergies Allergies Allergies Coded Allergies Type Severity Reaction Last Updated Verified Iodinated Contrast- Oral and IV Dye Allergy Unknown 03/13/18 Yes NSAIDS (Non-Steroidal Anti-Inflamma Allergy Unknown 03/13/18 Yes Sulfa (Sulfonamide Antibiotics) Allergy Unknown 03/13/18 Yes ibuprofen Allergy Unknown 03/13/18 Yes latex Allergy Unknown 03/13/18 Yes Physical Exam Physical Exam Constitutional: Well developed, well nourished, no acute distress, non-toxic appearance. [] HENT: Normocephalic, atraumatic, bilateral external ears normal, oropharynx moist, no oral exudates, nose normal. [] Eyes: PERRLA, EOMI, conjunctiva normal, no discharge. [] Neck: Normal range of motion, no tenderness, supple, no stridor. [] Cardiovascular:Heart rate regular rhythm, no murmur [] Lungs & Thorax: Bilateral breath sounds clear to auscultation [] Abdomen: Bowel sounds normal, soft, no tenderness, no masses, no pulsatile masses. [] Skin: Warm, dry, no erythema, no rash. [] Back: No tenderness, no CVA tenderness. [] Extremities: No tenderness, no cyanosis, no clubbing, ROM intact, no edema. [] Neurologic: Alert and oriented X 3, normal motor function, normal sensory function, no focal deficits noted. [] Psychologic: Affect normal, judgement normal, mood normal. [] Current Patient Data Vital Signs Vital Signs Date Time Temp Pulse Resp B/P (MAP) Pulse Ox O2 Delivery O2 Flow Rate FiO2 04/07/19 08:03 97.8 89 18 119/81 (94) 96 Room Air 97.8 EKG EKG [] Radiology/Procedures Radiology/Procedures []PROCEDURE: CHEST PA & LATERAL CHEST PA LATERAL History: Cough Comparison: 06/27/2018 portable chest x-ray exam. Findings: The cardiomediastinal silhouette is normal. Pulmonary vasculature is normal. The lungs are clear. No pleural effusion or pneumothorax is seen. There is no acute bone abnormality. Right upper quadrant surgical clips are present. IMPRESSION: No acute cardiopulmonary process. Electronically signed by: Sourav Winters MD (04/07/2019 9:10 AM) [id number] DICTATED and SIGNED BY: SOURAV WINTERS MD DATE: 04/07/19 0910 Course & Med Decision Making Course & Med Decision Making Pertinent Labs and Imaging studies reviewed. 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 She is also smoke she was encouraged to consider smoking cessation. Chest x-ray interpreted by radiologist as negative. Discharged with albuterol inhaler, prednisone, Tessalon Perles. Informed to consider not working in an environment with mold. Follow-up with PCP in 1-2 weeks Dragon Disclaimer Dragon Disclaimer This electronic medical record was generated, in whole or in part, using a voice recognition dictation system. Departure Departure Impression: Primary Impression: Smoking addiction Additional Impression: Acute bronchitis Disposition: ADMITTED INPATIENT Condition: STABLE Referrals: UNKNOWN PCP NAME (PCP) follow up with your doctor in 1-2 weeks Patient Instructions: Acute Bronchitis, Smoking Cessation Additional Instructions: You were evaluated in the emergency room for a cough, your chest x-ray is negative for any acute findings. Consider not working in an environmental mold. Continue taking Zyrtec. Consider smoking cessation. Use the prescribed medications as ordered. Follow up with your doctor in 1 week Scripts Benzonatate (TESSALON PERLE) 100 Mg Capsule 1 CAP PO TID, #30 CAP Prov: JULIO HAN APRN 04/07/19 Albuterol Sulfate (PROAIR HFA INHALER) 8.5 Gm Hfa.aer.ad 1 PUFF INH PRN Q6HRS PRN for SHORTNESS OF BREATH, #1 INHALER 0 Refills Prov: JULIO HAN APRN 04/07/19 Prednisone (PREDNISONE) 50 Mg Tablet 1 TAB PO DAILY, #5 TAB Prov: JULIO HAN APRN 04/07/19 Problem Qualifiers Additional Impression: Acute bronchitis Bronchitis organism: unspecified organism Qualified Codes: J20.9 - Acute bronchitis, unspecified JULIO HAN APRN Apr 07, 2019 08:29
--- NOTE | 2019-04-07 09:13 | RAD ---
CHEST PA LATERAL History: Cough Comparison: 06/27/2018 portable chest x-ray exam. Findings: The cardiomediastinal silhouette is normal. Pulmonary vasculature is normal. The lungs are clear. No pleural effusion or pneumothorax is seen. There is no acute bone abnormality. Right upper quadrant surgical clips are present. IMPRESSION: No acute cardiopulmonary process. Electronically signed by: Natalio Choudhury MD (04/07/2019 9:10 AM) [id number]
[2019-04-07] MEDS ORDERED: BENZ100C PO (09:30)
[2019-04-07] MEDS ORDERED: ALBU2.5V8 INH (09:30)
[2019-04-07] MEDS ORDERED: PRED50TA PO (09:30)
== END 2019-04-07 09:39 | disposition other institution (70) ==
LOC: ER 07:55
DX: J20.9 Acute bronchitis, unspecified (principal); F17.200 Nicotine dependence, unspecified, uncomplicated; I48.91 Unspecified atrial fibrillation; E78.00 Pure hypercholesterolemia, unspecified; I10 Essential (primary) hypertension; Z87.442 Personal history of urinary calculi; Z90.89 Acquired absence of other organs; Z90.49 Acquired absence of other specified parts of digestive tract; Z90.710 Acquired absence of both cervix and uterus; Z95.5 Presence of coronary angioplasty implant and graft; Z88.2 Allergy status to sulfonamides; Z88.8 Allergy status to other drugs, medicaments and biological substances; Z88.6 Allergy status to analgesic agent; Z91.041 Radiographic dye allergy status; Z91.040 Latex allergy status
CPT/HCPCS: 71046; 99284; 99285-25

== ENCOUNTER 2019-05-23 16:47 | Emergency (ER) | payer SELFPAY ==
[~2019-05-23] VITALS: Ht 165.1 cm; Wt 87.5 kg
[~2019-05-23 16:47] MED LIST changes: +ALBU2.5V8 INH; +BENZ100C PO
[2019-05-23 17:50] LABS: BILIRUBIN,URINE NEGATIVE (NEG); CLARITY,URINE CLOUDY; COLOR,URINE YELLOW; NITRITE,URINE NEGATIVE (NEG); PROTEIN,URINE NEGATIVE (NEG-TRACE); UROBILINOGEN,URINE 0.2 mg/dL (0.2 mg/dL)
[2019-05-23 18:08] LABS: BACTERIA,URINE MODERATE /HPF (0-FEW); SQUAMOUS EPITHELIAL CELL,UR MOD /LPF
[2019-05-23 19:59] LABS: BASO # 0.1 x10^3/uL (0.0-0.2); BASO % 1 % (0-3); EOS # 0.3 x10^3/uL (0.0-0.7); EOS % 2 % (0-3); HEMATOCRIT 47.5 % (36.0-47.0); HEMOGLOBIN 16.6 g/dL (12.0-15.5); LYMPH # 3.8 x10^3/uL (1.0-4.8); LYMPH % 36 % (24-48); MEAN CORPUSCULAR HEMOGLOBIN 33 pg (25-35); MEAN CORPUSCULAR HGB CONC 35 g/dL (31-37); MEAN CORPUSCULAR VOLUME 93 fL (79-100); MONO # 0.6 x10^3/uL (0.0-1.1); MONO % 6 % (0-9); NEUT # 5.9 x10^3/uL (1.8-7.7); NEUT % 56 % (31-73); PLATELET COUNT 256 x10^3/uL (140-400); RED BLOOD COUNT 5.09 x10^6/uL (3.50-5.40); RED CELL DISTRIBUTION WIDTH 13.7 % (11.5-14.5); WHITE BLOOD COUNT 10.6 x10^3/uL (4.0-11.0)
[2019-05-23] MEDS ORDERED: ONDANSETRON PF 4 MG/2 ML VIAL. IV ONE (20:00)
[2019-05-23] MEDS ORDERED: MORPHINE SULFATE 10 MG/ML VIAL. IV ONE (20:00)
[2019-05-23] MEDS ORDERED: IV NORMAL SALINE 1000ML BAG 1,000 ML IV ONE (20:00)
[2019-05-23] MEDS ORDERED: TAMSULOSIN 0.4 MG CAP.ER.24H. PO ONE (20:00)
[2019-05-23 20:08] LABS: CALCIUM 9.6 mg/dL (8.5-10.1); CREATININE 0.8 mg/dL (0.6-1.0); GFR 80.3; POTASSIUM 4.2 mmol/L (3.5-5.1)
[2019-05-23 20:15] LABS: ALBUMIN 4.6 g/dL (3.4-5.0); ALBUMIN/GLOBULIN RATIO 1.2 (1.0-1.7); TOTAL BILIRUBIN 0.3 mg/dL (0.2-1.0); TOTAL PROTEIN 8.3 g/dL (6.4-8.2)
--- NOTE | 2019-05-23 20:30 | RAD ---
Exam: CT abdomen and pelvis without IV contrast INDICATION: Left flank pain TECHNIQUE: Sequential axial images through the abdomen and pelvis obtained without IV contrast. Sagittal and coronal reformatted images were reconstructed from the axial data and reviewed. Comparisons: 09/12/2018 FINDINGS: Heart size is normal. No pericardial effusion. Visualized lung bases are clear. No pleural effusion. Evaluation of the solid organs is limited secondary to noncontrast technique. Liver, spleen, pancreas, and adrenals are unremarkable. Gallbladder is surgically absent. No perinephric inflammation or hydronephrosis. No renal or ureteral calculi. Bladder is distended and appears thin walled. Uterus is absent. Large and small bowel are unremarkable. Postural changes appendectomy noted. No free intra-abdominal air or fluid. No obstruction. Abdominal aorta has a normal course and caliber. No enlarged abdominal lymph nodes are identified. No suspicious osseous lesions or acute fractures. IMPRESSION: No renal or ureteral calculi. No evidence for obstructive uropathy. No acute process identified within the abdomen or pelvis. Exposure: One or more of the following in the visualized dose reduction techniques were utilized for this examination: 1. Automated exposure control 2. Adjustment of the MA and/or KV according to patient size 3. Use of iterative of reconstructive technique Electronically signed by: Gabby Keita MD (05/23/2019 8:27 PM) [id number]
[2019-05-23 20:53] VITALS: BP 115/65
[2019-05-23] MEDS ORDERED: HYDROmorphone 2 MG/ML VIAL IV ONE (21:00)
[2019-05-23] MEDS ORDERED: hydrALAZINE 20 MG/ML VIAL. IVP ONE (21:00)
--- NOTE | 2019-05-23 21:11 | PHYS DOC ---
Past Medical History Past Medical History: A-Fib, Arrhythmia, High Cholesterol, Hypertension, Kidney Infection, Kidney Stone, Other Additional Past Medical Histor: POLYCYSTIC KIDNEY DISEASE Past Surgical History: Angioplasty, Appendectomy, Cholecystectomy, Hysterectomy, Other Additional Past Surgical Histo: ,HEMORRHOID,BLADDER SLING, KEDNEY STENTS Alcohol Use: Occasionally Drug Use: None Adult General Chief Complaint Chief Complaint: BLOOD IN URINE HPI HPI Patient is a 38 year old female who presents with 8 out of 10 left flank pain radiating to the left lower abdomen that began yesterday. Patient is also complaining of nausea. Also complaining of vomiting. She has history of kidney stones and feels this pain is similar to kidney stone episode. She is also complaining of dysuria. Denies any fever. Review of Systems Review of Systems Constitutional: Denies fever or chills [] Eyes: Denies change in visual acuity, redness, or eye pain [] HENT: Denies nasal congestion or sore throat [] Respiratory: Denies cough or shortness of breath [] Cardiovascular: No additional information not addressed in HPI [] GI: Denies abdominal pain, nausea, vomiting, bloody stools or diarrhea [] : Reports left flank pain,dysuria denies hematuria [] Musculoskeletal: Denies back pain or joint pain [] Integument: Denies rash or skin lesions [] Neurologic: Denies headache, focal weakness or sensory changes [] All other systems were reviewed and found to be within normal limits, except as documented in this note. Current Medications Current Medications Current Medications Medications (Trade) Dose Ordered Sig/Alexis Start Time Stop Time Status Last Admin Dose Admin Hydralazine HCl (Apresoline Inj) 10 mg 1X ONCE 05/23/19 21:00 05/23/19 21:01 DC Hydromorphone HCl (Dilaudid) 1 mg 1X ONCE 05/23/19 21:00 05/23/19 21:01 DC 05/23/19 20:45 1 MG Morphine Sulfate (Morphine Sulfate) 5 mg 1X ONCE 05/23/19 20:00 05/23/19 20:01 DC 05/23/19 19:57 5 MG Ondansetron HCl (Zofran) 4 mg 1X ONCE 05/23/19 20:00 05/23/19 20:01 DC 05/23/19 19:57 4 MG Sodium Chloride 1,000 ml @ 1,000 mls/hr 1X ONCE 05/23/19 20:00 05/23/19 20:59 DC 05/23/19 19:57 1,000 MLS/HR Tamsulosin HCl (Flomax) 0.4 mg 1X ONCE 05/23/19 20:00 05/23/19 20:01 DC 05/23/19 19:57 0.4 MG Allergies Allergies Allergies Coded Allergies Type Severity Reaction Last Updated Verified Iodinated Contrast Media Allergy Intermediate 05/23/19 Yes NSAIDS (Non-Steroidal Anti-Inflamma Allergy Intermediate 05/23/19 Yes Sulfa (Sulfonamide Antibiotics) Allergy Intermediate 05/23/19 Yes ibuprofen Allergy Intermediate 05/23/19 Yes latex Allergy Intermediate 05/23/19 Yes Physical Exam Physical Exam Constitutional: Well developed, well nourished, no acute distress, non-toxic appearance. [] HENT: Normocephalic, atraumatic, bilateral external ears normal, oropharynx moist, no oral exudates, nose normal. [] Eyes: PERRLA, EOMI, conjunctiva normal, no discharge. [] Neck: Normal range of motion, no tenderness, supple, no stridor. [] Cardiovascular:Heart rate regular rhythm, no murmur [] Lungs & Thorax: Bilateral breath sounds clear to auscultation [] Abdomen: Bowel sounds normal, soft, no tenderness, no masses, no pulsatile masses. [] Skin: Warm, dry, no erythema, no rash. [] Back: No tenderness, no CVA tenderness. [] Extremities: No tenderness, no cyanosis, no clubbing, ROM intact, no edema. [] Neurologic: Alert and oriented X 3, normal motor function, normal sensory function, no focal deficits noted. [] Psychologic: Affect normal, judgement normal, mood normal. [] Current Patient Data Vital Signs Vital Signs Date Time Temp Pulse Resp B/P (MAP) Pulse Ox O2 Delivery O2 Flow Rate FiO2 05/23/19 20:54 66 115/65 05/23/19 20:40 18 98 Room Air 05/23/19 19:27 97.5 97.5 Lab Values Laboratory Tests Test 05/23/19 17:27 05/23/19 17:35 05/23/19 19:45 Urine Collection Type Void Urine Color Yellow Urine Clarity Cloudy Urine pH 6.0 Urine Specific [place] >=1.030 Urine Protein Negative mg/dL (NEG-TRACE) Urine Glucose (UA) Negative mg/dL (NEG) Urine Ketones (Stick) Negative mg/dL (NEG) Urine Blood Moderate (NEG) Urine Nitrite Negative (NEG) Urine Bilirubin Negative (NEG) Urine Urobilinogen Dipstick 0.2 mg/dL (0.2 mg/dL) Urine Leukocyte Esterase Negative (NEG) Urine RBC 3-5 /HPF (0-2) Urine WBC 11-20 /HPF (0-4) Urine Squamous Epithelial Cells Mod /LPF Urine Bacteria Moderate /HPF (0-FEW) Urine Mucus Mod /LPF POC Urine HCG, Qualitative Hcg negative (Negative) White Blood Count 10.6 x10^3/uL (4.0-11.0) Red Blood Count 5.09 x10^6/uL (3.50-5.40) Hemoglobin 16.6 g/dL (12.0-15.5) H Hematocrit 47.5 % (36.0-47.0) H Mean Corpuscular Volume 93 fL (79-100) Mean Corpuscular Hemoglobin 33 pg (25-35) Mean Corpuscular Hemoglobin Concent 35 g/dL (31-37) Red Cell Distribution Width 13.7 % (11.5-14.5) Platelet Count 256 x10^3/uL (140-400) Neutrophils (%) (Auto) 56 % (31-73) Lymphocytes (%) (Auto) 36 % (24-48) Monocytes (%) (Auto) 6 % (0-9) Eosinophils (%) (Auto) 2 % (0-3) Basophils (%) (Auto) 1 % (0-3) Neutrophils # (Auto) 5.9 x10^3/uL (1.8-7.7) Lymphocytes # (Auto) 3.8 x10^3/uL (1.0-4.8) Monocytes # (Auto) 0.6 x10^3/uL (0.0-1.1) Eosinophils # (Auto) 0.3 x10^3/uL (0.0-0.7) Basophils # (Auto) 0.1 x10^3/uL (0.0-0.2) Sodium Level 140 mmol/L (136-145) Potassium Level 4.2 mmol/L (3.5-5.1) Chloride Level 101 mmol/L (98-107) Carbon Dioxide Level 29 mmol/L (21-32) Anion Gap 10 (6-14) Blood Urea Nitrogen 15 mg/dL (7-20) Creatinine 0.8 mg/dL (0.6-1.0) Estimated GFR (Cockcroft-Gault) 80.3 BUN/Creatinine Ratio 19 (6-20) Glucose Level 84 mg/dL (70-99) Calcium Level 9.6 mg/dL (8.5-10.1) Total Bilirubin 0.3 mg/dL (0.2-1.0) Aspartate Amino Transferase (AST) 26 U/L (15-37) Alanine Aminotransferase (ALT) 46 U/L (14-59) Alkaline Phosphatase 83 U/L (46-116) Total Protein 8.3 g/dL (6.4-8.2) H Albumin 4.6 g/dL (3.4-5.0) Albumin/Globulin Ratio 1.2 (1.0-1.7) Lipase 114 U/L (73-393) Laboratory Tests 05/23/19 19:45 Laboratory Tests 05/23/19 19:45 EKG EKG [] Radiology/Procedures Radiology/Procedures []PROCEDURE: CT ABDOMEN PELVIS WO CONTRAST Exam: CT abdomen and pelvis without IV contrast INDICATION: Left flank pain TECHNIQUE: Sequential axial images through the abdomen and pelvis obtained without IV contrast. Sagittal and coronal reformatted images were reconstructed from the axial data and reviewed. Comparisons: 09/12/2018 FINDINGS: Heart size is normal. No pericardial effusion. Visualized lung bases are clear. No pleural effusion. Evaluation of the solid organs is limited secondary to noncontrast technique. Liver, spleen, pancreas, and adrenals are unremarkable. Gallbladder is surgically absent. No perinephric inflammation or hydronephrosis. No renal or ureteral calculi. Bladder is distended and appears thin walled. Uterus is absent. Large and small bowel are unremarkable. Postural changes appendectomy noted. No free intra-abdominal air or fluid. No obstruction. Abdominal aorta has a normal course and caliber. No enlarged abdominal lymph nodes are identified. No suspicious osseous lesions or acute fractures. IMPRESSION: No renal or ureteral calculi. No evidence for obstructive uropathy. No acute process identified within the abdomen or pelvis. Exposure: One or more of the following in the visualized dose reduction techniques were utilized for this examination: 1. Automated exposure control 2. Adjustment of the MA and/or KV according to patient size 3. Use of iterative of reconstructive technique Electronically signed by: Stepan Gupta MD (05/23/2019 8:27 PM) [facility] DICTATED and SIGNED BY: STEPAN GUPTA MD DATE: 05/23/192026 Course & Med Decision Making Course & Med Decision Making Pertinent Labs and Imaging studies reviewed. (See chart for details) This is a 38-year-old female patient presenting to the ED today with left flank pain, left lower quadrant pain, dysuria, symptoms for [address] of the abdomen and pelvic is negative for any acute findings. CBC with normal WBC, CMP with no acute findings, urine analysis is noted for 11-20 WBCs, urine does appear contaminated with squamous cells, no nitrates or leukocytes. Considering her symptoms will go ahead and treat her with cephalexin. Discharged to home. Dragon Disclaimer Dragon Disclaimer This electronic medical record was generated, in whole or in part, using a voice recognition dictation system. Departure Departure Impression: Primary Impression: Urinary tract infection Disposition: HOME, SELF-CARE Condition: STABLE Referrals: NO PCP (PCP) follow up with your doctor in one week Patient Instructions: Urinary Tract Infection Additional Instructions: You were treated for urinary tract infection. Your CAT scan was negative for any kidney stones. Please follow-up with your own primary care doctor in one week or the provided urologist. Scripts Cephalexin (CEPHALEXIN) 500 Mg Capsule 1 CAP PO BID, #14 CAP Prov: JULIO HAN APRN 05/23/19 Problem Qualifiers Primary Impression: Urinary tract infection Urinary tract infection type: site unspecified Hematuria presence: without hematuria Qualified Codes: N39.0 - Urinary tract infection, site not specified JULIO HAN APRN May 23, 2019 21:11
[2019-05-23] MEDS ORDERED: CEPH500C PO (21:15)
== END 2019-05-23 21:21 | disposition home or self-care (01) ==
LOC: ER 16:47
DX: N39.0 Urinary tract infection, site not specified (principal); R11.2 Nausea with vomiting, unspecified; I48.91 Unspecified atrial fibrillation; E78.00 Pure hypercholesterolemia, unspecified; I10 Essential (primary) hypertension; Z87.442 Personal history of urinary calculi; Z90.89 Acquired absence of other organs; Z90.49 Acquired absence of other specified parts of digestive tract; Z90.710 Acquired absence of both cervix and uterus; Z96.0 Presence of urogenital implants; Z91.041 Radiographic dye allergy status; Z91.040 Latex allergy status; Z88.6 Allergy status to analgesic agent; Z88.2 Allergy status to sulfonamides; Z88.8 Allergy status to other drugs, medicaments and biological substances
CPT/HCPCS: 36415; 74176; 80053; 81001; 81025; 83690; 85025; 87086; 96361; 96374; 96375; 99285; J1170; J2270; J2405; J7030

== ENCOUNTER 2019-07-06 14:09 | Emergency (ER) | payer SELFPAY ==
[~2019-07-06 14:09] MED LIST changes: +CEPH500C PO
== END 2019-07-06 16:13 | disposition left against medical advice (07) ==
LOC: ER 14:09
DX: M54.89 Other dorsalgia (principal); R20.2 Paresthesia of skin; Z53.21 Procedure and treatment not carried out due to patient leaving prior to being seen by health care provider

== ENCOUNTER 2019-08-28 13:17 | Emergency (ER) | payer SELFPAY ==
[~2019-08-28] VITALS: Ht 165.1 cm; Wt 89.4 kg
[2019-08-28 13:45] VITALS: BP 126/77
--- NOTE | 2019-08-28 15:37 | PHYS DOC ---
Past Medical History Past Medical History: A-Fib, Arrhythmia, High Cholesterol, Hypertension, Kidney Infection, Kidney Stone, Other Additional Past Medical Histor: POLYCYSTIC KIDNEY DISEASE Past Surgical History: Angioplasty, Appendectomy, Cholecystectomy, Hysterectomy, Other Additional Past Surgical Histo: ,HEMORRHOID,BLADDER SLING, KEDNEY STENTS Alcohol Use: Occasionally Drug Use: None Adult General Chief Complaint Chief Complaint: LOWER BACK PAIN OR INJURY HPI HPI Patient is a 38 year old female with history of chronic low back pain p resenting to the ED today complaining of the same. Patient denies any new injuries. She states she has known history of herniated discs. She states she is currently experiencing loss of bowel/bladder function that has been going on for days and she is currently wearing a diaper. She states she is also experiencing weakness to bilateral lower extremities that has been going on for days. She states she was seen at a local clinic and was asked to come to the ED to be evaluated. She is requesting MRI of the lumbar spine, she is also wrote requesting we do something for her back pain right now. Review of Systems Review of Systems Constitutional: Denies fever or chills [] Eyes: Denies change in visual acuity, redness, or eye pain [] HENT: Denies nasal congestion or sore throat [] Respiratory: Denies cough or shortness of breath [] Cardiovascular: No additional information not addressed in HPI [] GI: Denies abdominal pain, nausea, vomiting, bloody stools or diarrhea [] : Denies dysuria or hematuria [] Musculoskeletal: Reports low back pain Integument: Denies rash or skin lesions [] Neurologic: Denies headache, focal weakness or sensory changes [] All other systems were reviewed and found to be within normal limits, except as documented in this note. Allergies Allergies Allergies Coded Allergies Type Severity Reaction Last Updated Verified Iodinated Contrast Media Allergy Intermediate 05/23/19 Yes NSAIDS (Non-Steroidal Anti-Inflamma Allergy Intermediate 05/23/19 Yes Sulfa (Sulfonamide Antibiotics) Allergy Intermediate 05/23/19 Yes ibuprofen Allergy Intermediate 05/23/19 Yes latex Allergy Intermediate 05/23/19 Yes Physical Exam Physical Exam Constitutional: Well developed, well nourished, no acute distress, non-toxic appearance. [] HENT: Normocephalic, atraumatic, bilateral external ears normal, oropharynx moist, no oral exudates, nose normal. [] Eyes: PERRLA, EOMI, conjunctiva normal, no discharge. [] Neck: Normal range of motion, no tenderness, supple, no stridor. [] Cardiovascular:Heart rate regular rhythm, no murmur [] Lungs & Thorax: Bilateral breath sounds clear to auscultation [] Abdomen: Bowel sounds normal, soft, no tenderness, no masses, no pulsatile masses. [] Skin: Warm, dry, no erythema, no rash. [] Back: No tenderness, no CVA tenderness. [] Extremities: No tenderness, no cyanosis, no clubbing, ROM intact, no edema. [] Neurologic: Alert and oriented X 3, normal motor function, normal sensory function, no focal deficits noted. [] Psychologic: Affect normal, judgement normal, mood normal. [] Current Patient Data Vital Signs Vital Signs Date Time Temp Pulse Resp B/P (MAP) Pulse Ox O2 Delivery O2 Flow Rate FiO2 08/28/19 13:45 98.0 88 18 126/77 (93) 98 Room Air 98.0 EKG EKG [] Radiology/Procedures Radiology/Procedures [] Course & Med Decision Making Course & Med Decision Making Pertinent Labs and Imaging studies reviewed. (See chart for details) This is a 38-year-old female patient who presents to the ED today complaining of chronic low back pain, patient has history of herniated disks. She reports she has weakness to bilateral lower extremities or loss of bowel/ bladder function for days. Patient is requesting MRI of the lumbar spine. Informed patient to get an MRI of the lumbar spine i have to contact the neurosurgeon and let him know her symptoms, we also have to collect UA and do a rectal exam. She stood up stating she has too leave. She is cursing on the phone talking to her mother going on saying how we are not willing to do anything for her. Interestingly she says to her mother she tells her mother she does not put up with any of this type of issues. She stands up and walks away with no signs of weakness or difficulty walking Dragon Disclaimer Dragon Disclaimer This electronic medical record was generated, in whole or in part, using a voice recognition dictation system. Departure Departure Impression: Primary Impression: Acute exacerbation of chronic low back pain Disposition: AGAINST MEDICAL ADVICE Condition: STABLE Referrals: NO PCP (PCP) JULIO HAN APRN Aug 28, 2019 15:37
== END 2019-08-28 14:15 | disposition left against medical advice (07) ==
LOC: ER 13:17
DX: G89.29 Other chronic pain (principal); M54.5 Low back pain; M79.604 Pain in right leg; M79.605 Pain in left leg; I48.91 Unspecified atrial fibrillation; E78.00 Pure hypercholesterolemia, unspecified; I10 Essential (primary) hypertension; Q61.3 Polycystic kidney, unspecified; Z90.710 Acquired absence of both cervix and uterus; Z90.49 Acquired absence of other specified parts of digestive tract; Z95.5 Presence of coronary angioplasty implant and graft; Z88.2 Allergy status to sulfonamides; Z91.040 Latex allergy status; Z91.041 Radiographic dye allergy status; Z88.8 Allergy status to other drugs, medicaments and biological substances
CPT/HCPCS: 99281

== ENCOUNTER 2019-11-27 14:35 | Emergency (ER) | payer SELFPAY ==
[~2019-11-27] VITALS: Ht 165.1 cm; Wt 90.0 kg
[2019-11-27 15:31] LABS: BILIRUBIN,URINE NEGATIVE (NEG); CLARITY,URINE CLEAR; COLOR,URINE YELLOW; NITRITE,URINE NEGATIVE (NEG); PROTEIN,URINE NEGATIVE (NEG-TRACE)
[2019-11-27 15:41] LABS: SQUAMOUS EPITHELIAL CELL,UR MOD /LPF
[2019-11-27 15:42] LABS: BACTERIA,URINE 0 /HPF (0-FEW)
--- NOTE | 2019-11-27 17:53 | PHYS DOC ---
Past Medical History Past Medical History: A-Fib, Arrhythmia, High Cholesterol, Hypertension, Kidney Infection, Kidney Stone, Other Additional Past Medical Histor: POLYCYSTIC KIDNEY DISEASE Past Surgical History: Angioplasty, Appendectomy, Cholecystectomy, Hysterectomy, Other Additional Past Surgical Histo: HEMORRHOID,BLADDER SLING,KIDNEY STENTS Smoking Status: Current Every Day Smoker Additional Information: < 0.5 PPD Alcohol Use: Rarely Drug Use: None Adult General Chief Complaint Chief Complaint: FLANK PAIN HPI HPI Patient is a 38 year old female who presents to the emergency department with complaints of left-sided flank pain wraps to her lower left quadrant, dysuria, nausea, vomiting, and hematuria for the last 2 days. Patient states she has felt like she is having a hard time voiding. She denies any increased urinary frequency. She denies any fever, cough, shortness of breath, chest pain, palpitations, dizziness, or rash. She states she has a history of kidney stones and feels like her previous kidney stones. She currently rates her pain a 10 out of 10 on the pain scale. She denies any alleviating factors. Review of Systems Review of Systems All other ROS is negative unless otherwise noted in HPI. Current Medications Current Medications Current Medications Medications (Trade) Dose Ordered Sig/Alexis Start Time Stop Time Status Last Admin Dose Admin Morphine Sulfate (Morphine Sulfate) 4 mg 1X ONCE 11/27/19 19:00 11/27/19 19:01 DC 11/27/19 19:22 4 MG Ondansetron HCl (Zofran) 4 mg 1X ONCE 11/27/19 18:00 11/27/19 18:01 DC 11/27/19 18:21 4 MG Sodium Chloride 1,000 ml @ 1,000 mls/hr 1X ONCE 11/27/19 18:00 11/27/19 18:59 DC 11/27/19 18:22 1,000 MLS/HR Allergies Allergies Allergies Coded Allergies Type Severity Reaction Last Updated Verified Iodinated Contrast Media Allergy Intermediate 05/23/19 Yes NSAIDS (Non-Steroidal Anti-Inflamma Allergy Intermediate 05/23/19 Yes Sulfa (Sulfonamide Antibiotics) Allergy Intermediate 05/23/19 Yes ibuprofen Allergy Intermediate 05/23/19 Yes latex Allergy Intermediate 05/23/19 Yes Physical Exam Physical Exam See Above Constitutional: Well developed, well nourished, no acute distress, non-toxic appearance. [] HENT: Normocephalic, atraumatic, bilateral external ears normal, oropharynx moist, no oral exudates, nose normal. [] Eyes: PERRLA, EOMI, conjunctiva normal, no discharge. [] Neck: Normal range of motion, no stridor. [] Cardiovascular:Heart rate regular rhythm, no murmur [] Lungs & Thorax: Bilateral breath sounds clear to auscultation [] Abdomen: Bowel sounds normal, soft, no tenderness, no masses, no pulsatile masses. [] Skin: Warm, dry, no erythema, no rash. [] Back: No CVA tenderness. [] Extremities: No cyanosis, ROM intact, no edema. [] Neurologic: Alert and oriented X 3, no focal deficits noted. [] Psychologic: Affect normal, judgement normal, mood normal. [] Current Patient Data Vital Signs Vital Signs Date Time Temp Pulse Resp B/P (MAP) Pulse Ox O2 Delivery O2 Flow Rate FiO2 11/27/19 19:22 18 99 Room Air 11/27/19 18:53 74 124/61 (82) 11/27/19 15:25 97.8 97.8 Lab Values Laboratory Tests Test 11/27/19 14:44 11/27/19 18:13 Urine Collection Type Unknown Urine Color Yellow Urine Clarity Clear Urine pH 6.0 Urine Specific [place] 1.025 Urine Protein Negative mg/dL (NEG-TRACE) Urine Glucose (UA) Negative mg/dL (NEG) Urine Ketones (Stick) Negative mg/dL (NEG) Urine Blood Moderate (NEG) Urine Nitrite Negative (NEG) Urine Bilirubin Negative (NEG) Urine Urobilinogen Dipstick 1.0 mg/dL (0.2 mg/dL) Urine Leukocyte Esterase Negative (NEG) Urine RBC 11-20 /HPF (0-2) Urine WBC 1-4 /HPF (0-4) Urine Squamous Epithelial Cells Mod /LPF Urine Bacteria 0 /HPF (0-FEW) Urine Mucus Marked /LPF White Blood Count 8.3 x10^3/uL (4.0-11.0) Red Blood Count 4.63 x10^6/uL (3.50-5.40) Hemoglobin 15.0 g/dL (12.0-15.5) Hematocrit 42.5 % (36.0-47.0) Mean Corpuscular Volume 92 fL (79-100) Mean Corpuscular Hemoglobin 32 pg (25-35) Mean Corpuscular Hemoglobin Concent 35 g/dL (31-37) Red Cell Distribution Width 13.3 % (11.5-14.5) Platelet Count 230 x10^3/uL (140-400) Neutrophils (%) (Auto) 53 % (31-73) Lymphocytes (%) (Auto) 38 % (24-48) Monocytes (%) (Auto) 5 % (0-9) Eosinophils (%) (Auto) 3 % (0-3) Basophils (%) (Auto) 1 % (0-3) Neutrophils # (Auto) 4.4 x10^3/uL (1.8-7.7) Lymphocytes # (Auto) 3.2 x10^3/uL (1.0-4.8) Monocytes # (Auto) 0.4 x10^3/uL (0.0-1.1) Eosinophils # (Auto) 0.3 x10^3/uL (0.0-0.7) Basophils # (Auto) 0.1 x10^3/uL (0.0-0.2) Sodium Level 144 mmol/L (136-145) Potassium Level 3.6 mmol/L (3.5-5.1) Chloride Level 105 mmol/L (98-107) Carbon Dioxide Level 29 mmol/L (21-32) Anion Gap 10 (6-14) Blood Urea Nitrogen 10 mg/dL (7-20) Creatinine 0.8 mg/dL (0.6-1.0) Estimated GFR (Cockcroft-Gault) 80.3 BUN/Creatinine Ratio 13 (6-20) Glucose Level 84 mg/dL (70-99) Calcium Level 8.9 mg/dL (8.5-10.1) Total Bilirubin 0.3 mg/dL (0.2-1.0) Aspartate Amino Transferase (AST) 17 U/L (15-37) Alanine Aminotransferase (ALT) 25 U/L (14-59) Alkaline Phosphatase 77 U/L (46-116) Total Protein 7.1 g/dL (6.4-8.2) Albumin 3.9 g/dL (3.4-5.0) Albumin/Globulin Ratio 1.2 (1.0-1.7) Laboratory Tests 11/27/19 18:13 Laboratory Tests 11/27/19 18:13 EKG EKG [] Radiology/Procedures Radiology/Procedures PROCEDURE: CT ABDOMEN PELVIS WO CONTRAST CT Abdomen and Pelvis without contrast History: Left flank pain for 2 days, hematuria Technique: Noncontrast CT imaging was performed of the abdomen and pelvis. Multiplanar images are reviewed. Exposure: One or more of the following individualized dose reduction techniques were utilized for this examination: 1. Automated exposure control 2. Adjustment of the mA and/or kV according to patient size 3. Use of iterative reconstruction technique. Comparison: May 23, 2019 Findings: No urolithiasis or hydronephrosis is identified. There are phleboliths in the pelvis. There is no significant abnormality of the limited visualized lung bases. It should be noted the entirety of the abdomen the liver was not included on this exam. Accurate evaluation of abdominal visceral organs is limited without intravenous contrast. There has been cholecystectomy. There is no obvious abnormality of the spleen, liver, or pancreas. There is no adrenal nodularity. Accurate evaluation of bowel is limited without oral contrast. There is no significant free air, free fluid, bowel dilatation. There is mild sigmoid diverticulosis. There has been appendectomy and hysterectomy. Impression: 1. There is no urolithiasis or hydronephrosis. 2. There is mild sigmoid diverticulosis.[] Course & Med Decision Making Course & Med Decision Making Pertinent Labs and Imaging studies reviewed. (See chart for details) [] Dragon Disclaimer Dragon Disclaimer This electronic medical record was generated, in whole or in part, using a voice recognition dictation system. Departure Departure Impression: Primary Impression: Blood in the urine Additional Impression: Back pain Disposition: HOME, SELF-CARE Condition: STABLE Referrals: NO PCP (PCP) Patient Instructions: Back Pain, Adult, [id number], Hematuria-Brief Additional Instructions: Follow-up with your primary care doctor for further evaluation of blood in urine. Your CT and blood work were unremarkable today. Take Tylenol as needed for pain. Return to the ER if your symptoms worsen. Problem Qualifiers Primary Impression: Blood in the urine Hematuria type: unspecified type Qualified Codes: R31.9 - Hematuria, unspecified Additional Impression: Back pain Back pain location: low back pain Chronicity: unspecified Back pain laterality: left Sciatica presence: without sciatica Qualified Codes: M54.5 - Low back pain HERBERTH LANDRUM APRN Nov 27, 2019 17:53
[2019-11-27] MEDS ORDERED: ONDANSETRON PF 4 MG/2 ML VIAL. IV ONE (18:00)
[2019-11-27] MEDS ORDERED: IV NORMAL SALINE 1000ML BAG 1,000 ML IV ONE (18:00)
[2019-11-27] MEDS ORDERED: MORPHINE SULFATE 4 MG/ML VIAL. IV ONE ×2 (18:00→19:00)
[2019-11-27 18:21] LABS: BASO # 0.1 x10^3/uL (0.0-0.2); BASO % 1 % (0-3); EOS # 0.3 x10^3/uL (0.0-0.7); EOS % 3 % (0-3); HEMATOCRIT 42.5 % (36.0-47.0); LYMPH # 3.2 x10^3/uL (1.0-4.8); LYMPH % 38 % (24-48); MEAN CORPUSCULAR HEMOGLOBIN 32 pg (25-35); MEAN CORPUSCULAR HGB CONC 35 g/dL (31-37); MEAN CORPUSCULAR VOLUME 92 fL (79-100); MONO # 0.4 x10^3/uL (0.0-1.1); MONO % 5 % (0-9); NEUT # 4.4 x10^3/uL (1.8-7.7); NEUT % 53 % (31-73); PLATELET COUNT 230 x10^3/uL (140-400); RED BLOOD COUNT 4.63 x10^6/uL (3.50-5.40); RED CELL DISTRIBUTION WIDTH 13.3 % (11.5-14.5); WHITE BLOOD COUNT 8.3 x10^3/uL (4.0-11.0)
[2019-11-27 18:33] LABS: CALCIUM 8.9 mg/dL (8.5-10.1); CREATININE 0.8 mg/dL (0.6-1.0); GFR 80.3; POTASSIUM 3.6 mmol/L (3.5-5.1)
[2019-11-27 18:39] LABS: ALBUMIN 3.9 g/dL (3.4-5.0); ALBUMIN/GLOBULIN RATIO 1.2 (1.0-1.7); TOTAL BILIRUBIN 0.3 mg/dL (0.2-1.0); TOTAL PROTEIN 7.1 g/dL (6.4-8.2)
[2019-11-27 18:53] VITALS: BP 124/61
--- NOTE | 2019-11-27 19:30 | RAD ---
CT Abdomen and Pelvis without contrast History: Left flank pain for 2 days, hematuria Technique: Noncontrast CT imaging was performed of the abdomen and pelvis. Multiplanar images are reviewed. Exposure: One or more of the following individualized dose reduction techniques were utilized for this examination: 1. Automated exposure control 2. Adjustment of the mA and/or kV according to patient size 3. Use of iterative reconstruction technique. Comparison: May 23, 2019 Findings: No urolithiasis or hydronephrosis is identified. There are phleboliths in the pelvis. There is no significant abnormality of the limited visualized lung bases. It should be noted the entirety of the abdomen the liver was not included on this exam. Accurate evaluation of abdominal visceral organs is limited without intravenous contrast. There has been cholecystectomy. There is no obvious abnormality of the spleen, liver, or pancreas. There is no adrenal nodularity. Accurate evaluation of bowel is limited without oral contrast. There is no significant free air, free fluid, bowel dilatation. There is mild sigmoid diverticulosis. There has been appendectomy and hysterectomy. Impression: 1. There is no urolithiasis or hydronephrosis. 2. There is mild sigmoid diverticulosis. Electronically signed by: Immanuel Mason MD (11/27/2019 7:27 PM) [id number]
== END 2019-11-27 20:18 | disposition home or self-care (01) ==
LOC: ER 14:35
DX: K57.30 Diverticulosis of large intestine without perforation or abscess without bleeding (principal); R10.32 Left lower quadrant pain; R31.9 Hematuria, unspecified; R35.0 Frequency of micturition; R11.2 Nausea with vomiting, unspecified; I48.20 Chronic atrial fibrillation, unspecified; I49.9 Cardiac arrhythmia, unspecified; E78.00 Pure hypercholesterolemia, unspecified; I10 Essential (primary) hypertension; N15.9 Renal tubulo-interstitial disease, unspecified; F17.200 Nicotine dependence, unspecified, uncomplicated; Z90.89 Acquired absence of other organs; Z90.49 Acquired absence of other specified parts of digestive tract; Z87.442 Personal history of urinary calculi; Z90.710 Acquired absence of both cervix and uterus; Z98.890 Other specified postprocedural states; Z91.040 Latex allergy status; Z88.2 Allergy status to sulfonamides; Z88.4 Allergy status to anesthetic agent; Z91.041 Radiographic dye allergy status; Z88.6 Allergy status to analgesic agent
CPT/HCPCS: 36415; 74176; 80053; 81001; 85025; 96361; 96374; 96375; 96376; 99284; J2270; J2405; J7030

== ENCOUNTER 2020-03-14 20:32 | Emergency (ER) | payer SELFPAY ==
[~2020-03-14] VITALS: Ht 165.1 cm; Wt 89.0 kg
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
[2020-03-14] MEDS ORDERED: ACETAMINOPHEN 500 MG TABLET PO ONE (21:30)
== END 2020-03-14 21:28 | disposition home or self-care (01) ==
LOC: ER 20:32
DX: S00.83XA Contusion of other part of head, initial encounter (principal); R55 Syncope and collapse; I25.2 Old myocardial infarction; F17.200 Nicotine dependence, unspecified, uncomplicated; Z90.49 Acquired absence of other specified parts of digestive tract; Z90.710 Acquired absence of both cervix and uterus; Z91.040 Latex allergy status; Z88.2 Allergy status to sulfonamides; Z88.6 Allergy status to analgesic agent; Z88.1 Allergy status to other antibiotic agents; Z88.8 Allergy status to other drugs, medicaments and biological substances; Z90.89 Acquired absence of other organs; Z98.890 Other specified postprocedural states; Y08.89XA Assault by other specified means, initial encounter; Y93.89 Activity, other specified; Y92.89 Other specified places as the place of occurrence of the external cause; Y99.0 Civilian activity done for income or pay
CPT/HCPCS: 70450; 99284

== ENCOUNTER 2020-04-07 11:12 | Emergency (ER) | payer SELFPAY ==
[~2020-04-07] VITALS: Ht 165.1 cm; Wt 134.0 kg
[2020-04-07] MEDS ORDERED: IV NORMAL SALINE 1000ML BAG 1,000 ML IV ONE ×3 (11:30→14:30)
--- NOTE | 2020-04-07 12:06 | PHYS DOC ---
Past Medical History Past Medical History: [place], UTI Additional Past Medical Histor: "chronic kidney infections", Stomach cancer Past Surgical History: Appendectomy, Cholecystectomy, Hysterectomy Additional Past Surgical Histo: bladder spling placed, kidney cyst removal Smoking Status: Current Every Day Smoker Alcohol Use: Occasionally Drug Use: None Social History Narrative: Natalia General Adult EDM: Chief Complaint: OVERDOSE HPI: HPI: Patient is a 39 year old female presenting to the ED with a chief complaint of overdose. EMS state that patient overdosed on unknown medication and had to give Narcan 3 mg IV. After the Narcan was given patient responded well and is alert and oriented x3 currently. Patient did say that she has a history of stomach cancer and takes pain medication. Currently patient is complaining of pain secondary to the Narcan that is given. Patient does state that she drinks alcohol sometimes and that she does smoke. Patient does state that she has a history of elevated white blood cell count. Patient also states that she worked all last night and did not eat much and has not slept much. Review of Systems: Review of Systems: Constitutional: Denies fever or chills. [] Eyes: Denies change in visual acuity. [] HENT: Denies nasal congestion or sore throat. [] Respiratory: Denies cough or shortness of breath. [] Cardiovascular: Denies chest pain or edema. [] GI: Denies abdominal pain, nausea, vomiting, bloody stools or diarrhea. [] : Denies dysuria. [] Neurologic: Denies headache, focal weakness or sensory changes. [] Heart Score: Risk Factors: Risk Factors: DM, Current or recent (<one month) smoker, HTN, HLP, family history of CAD, obesity. Risk Scores: Score 0 - 3: 2.5% MACE over next 6 weeks - Discharge Home Score 4 - 6: 20.3% MACE over next 6 weeks - Admit for Clinical Observation Score 7 - 10: 72.7% MACE over next 6 weeks - Early Invasive Strategies Current Medications: Current Medications Medications (Trade) Dose Ordered Sig/Alexis Start Time Stop Time Status Last Admin Dose Admin Sodium Chloride 1,000 ml @ 1,000 mls/hr 1X ONCE 04/07/20 11:30 04/07/20 12:29 Allergies: Allergies: Allergies Coded Allergies Type Severity Reaction Last Updated Verified Iodinated Contrast Media Allergy Intermediate 05/23/19 Yes NSAIDS (Non-Steroidal Anti-Inflamma Allergy Intermediate 05/23/19 Yes Sulfa (Sulfonamide Antibiotics) Allergy Intermediate 05/23/19 Yes ibuprofen Allergy Intermediate 05/23/19 Yes latex Allergy Intermediate 05/23/19 Yes Physical Exam: PE: Constitutional: Well developed, well nourished, no acute distress, non-toxic appearance. [] HENT: Normocephalic, atraumatic Eyes: EOMI Neck: Normal range of motion, Supple Cardiovascular:Heart rate regular rhythm Lungs & Thorax: Bilateral breath sounds clear to auscultation [] Abdomen: Bowel sounds normal, soft, no tenderness Extremities: No tenderness, ROM intact Neurologic: Alert and oriented X 3 Current Patient Data: Vital Signs: Vital Signs Date Time Temp Pulse Resp B/P (MAP) Pulse Ox O2 Delivery O2 Flow Rate FiO2 04/07/20 11:15 98.7 144 17 102/79 (87) 93 Room Air 98.7 EKG: EKG: EKG interpretation: 13: 30 on 04/07/2020 HR: 114 Irregular rhythm Normal axis Nonspecific ST changes Radiology/Procedures: Radiology/Procedures: [] Impression: CT Abd/Pelvis Impression: Inflammation around the left adrenal gland. This is an unusual finding and can be autoimmune or infectious or secondary to sarcoidosis or amyloidosis. CXR Impression: No acute cardiopulmonary disease Course & Med Decision Making: Course & Med Decision Making Pertinent Labs and Imaging studies reviewed. (See chart for details) Ordered labs, IV fluids Patient is alert and oriented x3 with no focal neuro deficits on exam. Patient is answering questions appropriately. Labs show that patient has a leukocytosis of 31.8. Blood glucose is 38. Patient was given 1 amp of D50. Patient is UDS positive for cocaine. Patient has received a total of 3 L IV fluids in the ED. Patient is also eating without any difficulty. When patient falls asleep her oxygenation drops to the mid 80s. When patient is awake and talking her oxygenation is at 96%. Discussed admission with. Patient and family due to hypoxia when she falls asleep. Patient does not use CPAP or BiPAP at home. Patient does not want to be admitted and states that she wants to go home. She states that she will use her [id number]'s CPAP machine. Again I have offered admission but patient declines. Family present in room for this discussion. Discussed results and plan of care with patient. Patient is instructed to follow up with PCP in one to 2 days. Appropriate discharge instructions given to patient to return to the ED or to seek immediate medical evaluation. Patient is instructed to return to the ED if symptoms worsen or if any concerns. Dragon Disclaimer: Dragon Disclaimer: This electronic medical record was generated, in whole or in part, using a voice recognition dictation system. Departure Departure Impression: Primary Impression: Overdose Additional Impressions: Hypoglycemia Hypotension Hypoxia Disposition: 01 HOME, SELF-CARE Condition: IMPROVED Referrals: UNKNOWN PCP NAME (PCP) Patient Instructions: Hypoglycemia, [id number], Narcotic Overdose, Overdose, Accidental Additional Instructions: Discussed results and plan of care with patient. Patient is instructed to follow up with PCP in one to 2 days. Appropriate discharge instructions given to patient to return to the ED or to seek immediate medical evaluation. Patient is instructed to return to the ED if symptoms worsen or if any concerns. Justicifation of Admission Dx: Justifications for Admission: Justification of Admission Dx: REGI Rodarte DO Apr 07, 2020 12:06
[2020-04-07 12:41] LABS: BASO # 0.1 x10^3/uL (0.0-0.2); BASO % 0 % (0-3); EOS % 0 % (0-3); HEMATOCRIT 40.4 % (36.0-47.0); HEMOGLOBIN 14.2 g/dL (12.0-15.5); LYMPH # 1.5 x10^3/uL (1.0-4.8); LYMPH % 5 % (24-48); MEAN CORPUSCULAR HEMOGLOBIN 32 pg (25-35); MEAN CORPUSCULAR HGB CONC 35 g/dL (31-37); MEAN CORPUSCULAR VOLUME 92 fL (79-100); MONO % 6 % (0-9); NEUT % 89 % (31-73); PLATELET COUNT 260 x10^3/uL (140-400); RED BLOOD COUNT 4.39 x10^6/uL (3.50-5.40); RED CELL DISTRIBUTION WIDTH 13.3 % (11.5-14.5); WHITE BLOOD COUNT 31.6 x10^3/uL (4.0-11.0)
[2020-04-07 12:42] LABS: ALBUMIN 3.9 g/dL (3.4-5.0); ALBUMIN/GLOBULIN RATIO 1.1 (1.0-1.7); CALCIUM 8.5 mg/dL (8.5-10.1); CREATININE 1.7 mg/dL (0.6-1.0); GFR 33.5; POTASSIUM 3.6 mmol/L (3.5-5.1); TOTAL BILIRUBIN 0.2 mg/dL (0.2-1.0); TOTAL PROTEIN 7.3 g/dL (6.4-8.2)
[2020-04-07] MEDS ORDERED: DEXTROSE 50% 25 GM / 50ML DISP.SYRIN. IV ONE ×2 (12:59→13:15)
[2020-04-07] MEDS ORDERED: NALOXONE 0.4 MG/ML VIAL. ONE (13:16)
--- NOTE | 2020-04-07 13:24 | RAD ---
EXAM: CHEST AP ONLY INDICATION: Reason: cough. AMS / Spl. Instructions: / History: . TECHNIQUE: Single view COMPARISON: 04/07/2019 chest x-ray FINDINGS: The heart size is normal. The great vessels appear unremarkable. There is no hilar or mediastinal mass. The lungs are markedly hypoventilatory. There is no pleural effusion or pneumothorax. There are no significant osseous abnormalities. IMPRESSION: Poor inspiration. Otherwise no active cardiopulmonary disease. Electronically signed by: Wilma Winchester MD (04/07/2020 1:21 PM) [id number]
[2020-04-07 13:26] LABS: % BANDS 7 % (0-9); % LYMPHS 6 % (24-48); % MONOS 12 % (0-10); % MYELOS 1 % (0-0); % SEGS 74 % (35-66); PLT ESTIMATE ADEQUATE (ADEQUATE)
[2020-04-07] MEDS ORDERED: NALOXONE 0.4 MG/ML VIAL. IV ONE (13:45)
[2020-04-07 13:51] LABS: BILIRUBIN,URINE NEGATIVE (NEG); NITRITE,URINE NEGATIVE (NEG); PH,URINE 5.5 (<5.0-8.0); PROTEIN,URINE 100 mg/dL (NEG-TRACE)
[2020-04-07 13:57] LABS: BARBITURATES NEG (NEG); BENZODIAZEPINES NEG (NEG); CANNABINOIDS NEG (NEG); COCAINE POS (NEG); METHADONE NEG (NEG); OPIATES NEG (NEG); PHENCYCLIDINE NEG (NEG)
[2020-04-07 13:58] LABS: AMPHETAMINE/METHAMPHETAMINE NEG (NEG)
--- NOTE | 2020-04-07 14:00 | RAD ---
Abdominal and Pelvis CT, Without Contrast: History: Reason: ABDOMEN PAIN / Spl. Instructions: WO CONTRAST DUE TO GFR 33 AND IODINE ALLERGY / History: Comparison: November 27, 2019. Procedure: Axial images are obtained of the abdomen and pelvis, without IV or oral contrast. Oral Contrast: No Findings: Evaluation of solid organs is limited without contrast. There is inflammation in the fat directly around the left adrenal. Liver: Normal. Spleen: Normal. Pancreas: Normal. Adrenal Glands: Normal. Kidneys: Normal. There is no free air or free fluid. There is no lymphadenopathy. The urinary bladder appears normal. There is no pericolonic inflammation identified. Impression: Inflammation around the left adrenal gland. This is an unusual finding and can be autoimmune or infectious or secondary to sarcoidosis or amyloidosis. End impression PQRS Compliance Statement: One or more of the following individualized dose reduction techniques were utilized for this examination: 1. Automated exposure control 2. Adjustment of the mA and/or kV according to patient size 3. Use of iterative reconstruction technique Electronically signed by: Maik Connell III, MD (04/07/2020 1:57 PM) [id number]
[2020-04-07 14:12] LABS: CLARITY,URINE CLEAR; COLOR,URINE YELLOW
[2020-04-07 14:13] LABS: HYALINE CASTS, URINE MANY /HPF; SQUAMOUS EPITHELIAL CELL,UR MANY /LPF
[2020-04-07 14:14] LABS: RBC,URINE OCC /HPF (0-2)
[2020-04-07 14:15] LABS: BACTERIA,URINE FEW /HPF (0-FEW)
[2020-04-07] MEDS ORDERED: CLINDAMYCIN 900MG PREMIX 50 ML IV ONE (14:30)
[2020-04-07 17:20] VITALS: BP 80/52
--- NOTE | 2020-04-08 11:22 | EKG ---
[facility] [address] [place] [address] Test Date: 2020-04-07 Test Time: 13:30:53 Pat Name: MIR MARTINEZ Department: Room: Gender: F [employer]: : 1980 Requested By: REGI CROOKS Order Number: [id number] Reading MD: Measurements Intervals [place] Rate: 114 P: RI: QRS: 47 QRSD: 78 T: 15 QT: 340 QTc: 472 Interpretive Statements IRREGULAR RHYTHM, NO P-WAVE FOUND OTHERWISE NORMAL ECG RI6.02 No previous ECG available for comparison
== END 2020-04-07 18:02 | disposition home or self-care (01) ==
LOC: ER 11:12
DX: T50.7X1A Poisoning by analeptics and opioid receptor antagonists, accidental (unintentional), initial encounter (principal); R10.9 Unspecified abdominal pain; R09.02 Hypoxemia; I95.9 Hypotension, unspecified; I25.2 Old myocardial infarction; E16.2 Hypoglycemia, unspecified; F17.200 Nicotine dependence, unspecified, uncomplicated; Z90.49 Acquired absence of other specified parts of digestive tract; Z90.710 Acquired absence of both cervix and uterus; Z90.89 Acquired absence of other organs; Z98.890 Other specified postprocedural states; Z85.9 Personal history of malignant neoplasm, unspecified; Z88.1 Allergy status to other antibiotic agents; Z91.040 Latex allergy status; Z88.2 Allergy status to sulfonamides; Z88.8 Allergy status to other drugs, medicaments and biological substances; Y92.89 Other specified places as the place of occurrence of the external cause
CPT/HCPCS: 36415; 71045; 74176; 80053; 80307; 81001; 82962; 83605; 85007; 85025; 87086; 93005; 96365; 96366; 96375; 99285; G0480; J2310; J3490; J7030; J7042

== ENCOUNTER 2020-10-23 17:42 | Emergency (ER) | payer SELFPAY ==
[~2020-10-23] VITALS: Ht 165.1 cm; Wt 86.4 kg
[~2020-10-23 17:42] MED LIST changes: -CLIN300C8 PO; +CLIN300C9 PO
[2020-10-23 18:27] VITALS: BP 139/94
--- NOTE | 2020-10-23 18:39 | PHYS DOC ---
Past Medical History Past Medical History: [place], UTI Additional Past Medical Histor: "chronic kidney infections", Stomach cancer (JULIO HAN APRN) Past Surgical History: Appendectomy, Cholecystectomy, Hysterectomy Additional Past Surgical Histo: bladder spling placed, kidney cyst removal (JULIO HAN APRN) Smoking Status: Current Every Day Smoker Alcohol Use: Occasionally Drug Use: None (JULIO HAN APRN) General Adult EDM: Chief Complaint: CAST CHECK HPI: HPI: Patient is a 39 year old female who presents to the ED today requesting to be re-splinted. Patient states she had a thumb spica on her right hand after having fracture of the right thumb last week seen at [facility]. She states today she was cleaning with some chemical chief port director that spilled over the splint. She removed the splint. She states she has an appointment with an orthopedic doctor next week. (JULIO HAN APRN) Review of Systems: Review of Systems: Constitutional: Denies fever or chills. [] Musculoskeletal: Request to be resplinted, right thumb fracture next week Integument: Denies rash. [] Neurologic: Denies headache, focal weakness or sensory changes. [] Psychiatric: Denies depression or anxiety. [] (JULIO HAN APRN) Heart Score: Risk Factors: Risk Factors: DM, Current or recent (<one month) smoker, HTN, HLP, family history of CAD, obesity. Risk Scores: Score 0 - 3: 2.5% MACE over next 6 weeks - Discharge Home Score 4 - 6: 20.3% MACE over next 6 weeks - Admit for Clinical Observation Score 7 - 10: 72.7% MACE over next 6 weeks - Early Invasive Strategies (JULIO HAN APRN) Allergies: Allergies: Allergies Coded Allergies Type Severity Reaction Last Updated Verified Iodinated Contrast Media Allergy Intermediate 05/23/19 Yes NSAIDS (Non-Steroidal Anti-Inflamma Allergy Intermediate 05/23/19 Yes Sulfa (Sulfonamide Antibiotics) Allergy Intermediate 05/23/19 Yes ibuprofen Allergy Intermediate 05/23/19 Yes latex Allergy Intermediate 05/23/19 Yes (JULIO HAN APRN) Physical Exam: PE: Constitutional: Well developed, well nourished, no acute distress, non-toxic appearance. [] Skin: Warm, dry, no erythema, no rash. [] Back: No tenderness, no CVA tenderness. [] Extremities: Right hand with no obvious deformity. No tenderness on exam. Full range of motion to the right hand and fingers, adequate radial median ulnar sensation to the right hand. +2 right radial pulse. Cap refill less than 2 seconds right fingers Neurologic: Alert and oriented X 3, normal motor function, normal sensory function, no focal deficits noted. [] Psychologic: Affect normal, judgement normal, mood normal. [] (JULIO HAN APRN) EKG: EKG: [] (JULIO HAN APRN) Radiology/Procedures: Radiology/Procedures: [] (JULIO HAN APRN) Course & Med Decision Making: Course & Med Decision Making Pertinent Labs and Imaging studies reviewed. (See chart for details) This is a 39-year-old female patient presenting to the ED today requesting to be re-splinted. Patient was in a thumb spica since last week placed at [facility] after a thumb fracture. She took the splint out today because some chemicals spilled over it. She was put back in a thumb spica by the seafood technology specialist, neurovascular exam done by me is normal. Ice elevation encouraged. Follow-up with orthopedic doctor as scheduled (JULIO HAN APRN) Course & Med Decision Making I oversaw on the above date of service of this patient and discussed the care with the PUBLIC RELATIONS OFFICER. I agree with the findings, plan of care, and disposition as documented. (PRINCESS LONG DO) Mini Disclaimer: Mini Disclaimer: This electronic medical record was generated, in whole or in part, using a voice recognition dictation system. (JULIO HAN APRN) Departure Departure Impression: Primary Impression: Aftercare for cast or splint check or change Disposition: 01 DC HOME SELF CARE/HOMELESS Condition: STABLE Referrals: UNKNOWN PCP NAME (PCP) Follow-up with orthopedic doctor next week Patient Instructions: Cast or Splint Care, [id number] Additional Instructions: You have a new splint, keep it clean and dry. Elevate your right upper extr emity as tolerated. Follow-up with orthopedic doctor next week JULIO HAN APRN Oct 23, 2020 18:38 PRINCESS LONG DO Oct 24, 2020 18:55
== END 2020-10-23 19:09 | disposition home or self-care (01) ==
LOC: ER 17:42
DX: S62.501A Fracture of unspecified phalanx of right thumb, initial encounter for closed fracture (principal); I25.2 Old myocardial infarction; F17.200 Nicotine dependence, unspecified, uncomplicated; Z90.89 Acquired absence of other organs; Z90.49 Acquired absence of other specified parts of digestive tract; Z90.710 Acquired absence of both cervix and uterus; Z98.890 Other specified postprocedural states; Z91.041 Radiographic dye allergy status; Z91.040 Latex allergy status; Z88.2 Allergy status to sulfonamides; Z88.8 Allergy status to other drugs, medicaments and biological substances; X58.XXXA Exposure to other specified factors, initial encounter; Y93.89 Activity, other specified; Y92.89 Other specified places as the place of occurrence of the external cause; Y99.8 Other external cause status
CPT/HCPCS: 29125; 99283

== ENCOUNTER 2021-04-24 14:09 | Emergency (ER) | payer SELFPAY ==
[~2021-04-24] VITALS: Ht 165.1 cm; Wt 89.0 kg
[2021-04-24 14:40] VITALS: BP 151/97
--- NOTE | 2021-04-24 14:56 | PHYS DOC ---
Past Medical History Past Medical History: Cancer, [place], UTI Additional Past Medical Histor: "chronic kidney infections", Stomach cancer Past Medical History Recurrent dental infections Past Surgical History: Appendectomy, Cholecystectomy, Hysterectomy Additional Past Surgical Histo: bladder spling placed, kidney cyst removal Smoking Status: Current Every Day Smoker Alcohol Use: Occasionally Drug Use: None General Adult EDM: Chief Complaint: MULTIPLE COMPLAINTS HPI: HPI: Patient is a 40 year old female who presents with recurrent right-sided dental pain. Patient states that she has had an infection of a right maxillary tooth that has been recurrent. Has been on multiple courses of Augmentin with good effect. She stopped her last course of Augmentin sometime last week. In the past 1 to 2 days has had increasing pain in that right maxillary area. Pain now radiates towards her right neck. She reports subjective fevers, but has not measured any at home. She has been referred to multiple dentist, and most recently has been referred to a dental surgeon in [place]. She has his contact information, but has not scheduled appointment for tooth extraction. She has had no shortness of breath, stridor. She does think that the right side of her tongue is somewhat swollen as compared to normal. She reports her significant other has told her that she has noisy breathing at nighttime. Review of Systems: Review of Systems: Constitutional: Reports subjective fevers/chills. [] Eyes: Denies change in visual acuity. [] HENT: Right upper dental pain, right sinus pain, right neck discomfort. [] Respiratory: Denies cough or shortness of breath. [] Cardiovascular: Denies chest pain or edema. [] GI: Denies abdominal pain, nausea, vomiting, bloody stools or diarrhea. [] : Denies dysuria. [] Musculoskeletal: Denies back pain or joint pain. [] Integument: Denies rash. [] Neurologic: Denies headache, focal weakness or sensory changes. [] Endocrine: Denies polyuria or polydipsia. [] Lymphatic: Denies swollen glands. [] Psychiatric: Denies depression or anxiety. [] Heart Score: C/O Chest Pain: N/A Risk Factors: Risk Factors: DM, Current or recent (<one month) smoker, HTN, HLP, family history of CAD, obesity. Risk Scores: Score 0 - 3: 2.5% MACE over next 6 weeks - Discharge Home Score 4 - 6: 20.3% MACE over next 6 weeks - Admit for Clinical Observation Score 7 - 10: 72.7% MACE over next 6 weeks - Early Invasive Strategies Family History: Family History: No pertinent family history Allergies: Allergies: Allergies Coded Allergies Type Severity Reaction Last Updated Verified Iodinated Contrast Media Allergy Intermediate 05/23/19 Yes NSAIDS (Non-Steroidal Anti-Inflamma Allergy Intermediate 05/23/19 Yes Sulfa (Sulfonamide Antibiotics) Allergy Intermediate 05/23/19 Yes ibuprofen Allergy Intermediate 05/23/19 Yes latex Allergy Intermediate 05/23/19 Yes Physical Exam: PE: Constitutional: Well developed, well nourished, no acute distress, non-toxic appearance. [] HENT: Fractured tooth on the right maxillary surface. Some surrounding decay and erythema. No appreciable apical abscess. No appreciable facial swelling, tongue swelling. No trismus. Opens mouth without difficulty. Handle secretions well. No stridor. Submental space is soft, nontender. Moves neck rapidly in both directions without discomfort. Uvula is midline. Peritonsillar spaces are symmetric. [] Eyes: PERRLA, EOMI, conjunctiva normal, no discharge. [] Neck: Normal range of motion, no tenderness, supple, no stridor. [] Cardiovascular:Heart rate regular rhythm, no murmur [] Lungs & Thorax: Bilateral breath sounds clear to auscultation [] Abdomen: Bowel sounds normal, soft, no tenderness, no masses, no pulsatile masses. [] Skin: Warm, dry, no erythema, no rash. [] Back: No tenderness, no CVA tenderness. [] Extremities: No tenderness, no cyanosis, no clubbing, ROM intact, no edema. [] Neurologic: Alert and oriented X 3, normal motor function, normal sensory function, no focal deficits noted. [] Psychologic: Affect normal, judgement normal, mood normal. [] Procedure: Dental block Indication: Dental pain, right maxillary Wrist distress: Failure of block, spreading infection, and bleeding. Technique: 3 mL of 0.5% bupivacaine were injected in the apical space above the affected right maxillary tooth. Aspirated without return of blood prior to injection. Patient tolerated well without complication. EKG: EKG: NA [] Radiology/Procedures: Radiology/Procedures: NA [] Impression: NA Course & Med Decision Making: Course & Med Decision Making Pertinent Labs and Imaging studies reviewed. (See chart for details) Patient is a 40-year-old female with recurrent dental infections, who presents with right-sided maxillary facial/dental pain that extends to her right neck. She complains of subjective fevers, but is afebrile normal vital signs here. She also complains of some right-sided tongue swelling, but objectively has symmetric oropharynx without any edema. She has no evidence of peritonsillar abscess or RPA. She moves her neck freely from side to side and has no trismus. No evidence of Sarwat's angina. Managing secretions well. Do not feel that she requires a CT scan at the neck at this time. I am concerned that she is developing a recurrent infection of her fractured right maxillary tooth. Will prescribe Augmentin. I have asked her to continue using Tylenol on a scheduled basis, 1000 mg every 6 hours. I will provide a dental block for pain control with bupivacaine. She has a referral to an oral surgeon in [facility] already, she will contact him to schedule an appointment as soon as possible. Mini Disclaimer: Mini Disclaimer: This electronic medical record was generated, in whole or in part, using a voice recognition dictation system. Departure Departure Impression: Primary Impression: Dental infection Disposition: HOME / SELF CARE / HOMELESS Condition: GOOD Referrals: UNKNOWN PCP NAME (PCP) Additional Instructions: I am concerned that you have a recurrent dental infection. Please take Augmentin as prescribed. Please call your dental surgeon in [place], [place] either later today or first thing tomorrow to schedule an appointment for extraction. If you develop difficulty breathing, worsening pain, pain with movement of the neck, or other new/concerning symptoms please return to the emergency department for reevaluation peer Scripts Amoxicillin/Potassium Clav (AUGMENTIN 875-125 TABLET) 1 Each Tablet 1 TAB PO Q12HR for 10 Days, #20 TAB 0 Refills Prov: MARIANO GREEN MD 04/24/21 MARIANO GREEN MD Apr 24, 2021 14:55
[2021-04-24] MEDS ORDERED: BUPIVACAINE MPF 0.5% 30 ML VIAL. INJ ONE (15:00)
[2021-04-24] MEDS ORDERED: AMOX1TAB61 PO (15:08)
== END 2021-04-24 15:49 | disposition home or self-care (01) ==
LOC: ER 14:09
DX: K04.7 Periapical abscess without sinus (principal); I25.2 Old myocardial infarction; Z87.440 Personal history of urinary (tract) infections; F17.200 Nicotine dependence, unspecified, uncomplicated; Z91.041 Radiographic dye allergy status; Z88.6 Allergy status to analgesic agent; Z88.2 Allergy status to sulfonamides; Z91.040 Latex allergy status
CPT/HCPCS: 64400; 99284; J3490

== ENCOUNTER 2021-10-27 08:43 | Emergency (ER) | payer SELFPAY ==
[~2021-10-27 08:43] MED LIST changes: +AMOX1TAB61 PO; +CLIN-94 PO; -CLIN300C9 PO; +CYCL10TA19 PO; -CYCL10TA2 PO
== END 2021-10-27 09:42 | disposition left against medical advice (07) ==
LOC: ER 08:43
DX: R42 Dizziness and giddiness (principal); Z53.21 Procedure and treatment not carried out due to patient leaving prior to being seen by health care provider

== ENCOUNTER 2022-01-30 09:15 | Emergency (ER) | payer SELFPAY ==
[~2022-01-30] VITALS: Ht 165.1 cm; Wt 81.4 kg
[2022-01-30] MEDS ORDERED: ONDANSETRON PF 4 MG/2 ML VIAL. IVP ONE (10:15)
[2022-01-30] MEDS ORDERED: IV RINGERS,LACTATED 1000ML 1,000 ML IV ONE (10:15)
[2022-01-30] MEDS ORDERED: fentaNYL PF VIAL 100 MCG/2 ML VIAL IVP ONE (10:15)
--- NOTE | 2022-01-30 10:41 | RAD ---
Axial CT images of the abdomen and pelvis with coronal and sagittal reformats were performed without contrast per renal colic protocol. Exposure: One or more of the following individualized dose reduction techniques were utilized for thi s examination: 1. Automated exposure control 2. Adjustment of the mA and/or kV according to patient size 3. Use of iterative reconstruction technique Indication: Reason: r side flank pain, CVA tenderness, dysuria / Spl. Instructions: / History: Comparison: 04/07/2020. Findings: No renal, ureteral, or bladder stones are identified. No hydronephrosis, perinephric fat stranding, or hydroureter are seen bilaterally. Right lower quadrant surgical clips suggestive of cholecystectomy are identified. Patient status post hysterectomy. Cholecystectomy clips are identified. The remainder of the non contrasted abdomen and pelvis is normal in appearance, although evaluation is limited on an unenhanced exam. Impression: 1. No evidence of urolithiasis or urinary obstruction. Electronically signed by: Ward Smith MD (01/30/2022 10:38 AM) [id number]
--- NOTE | 2022-01-30 10:51 | PHYS DOC ---
Past Medical History Past Medical History: Cancer, [place], UTI Additional Past Medical Histor: "chronic kidney infections," stomach cancer Past Surgical History: Appendectomy, Cholecystectomy, Hysterectomy Additional Past Surgical Histo: STENT IN BILAT KIDNEY, EX LAP, Smoking Status: Current Every Day Smoker Alcohol Use: None Drug Use: None General Adult EDM: Chief Complaint: FLANK PAIN HPI: HPI: Patient is a 41 year old female who presents with right-sided flank pain and difficulty urinating for the past 4 days. She rates her pain 8/10 and nonradiating in the right flank. Patient reports she has had kidney infections and kidney stones frequently in the past, this feels similar. She reports difficulty initiating urination and has to put forth more effort than normal to initiate stream. Patient states that her urine has been intermittently dark. She denies fever, chills, generalized weakness, hematuria, foul-smelling urine. Patient has no other complaints at this time. Review of Systems: Review of Systems: ROS negative or noncontributory except as mentioned in HPI. Heart Score: C/O Chest Pain: No Current Medications: Current Medications Medications (Trade) Dose Ordered Sig/Alexis Start Time Stop Time Status Last Admin Dose Admin Fentanyl Citrate (Fentanyl 2ml Vial) 50 mcg 1X ONCE 01/30/22 10:15 01/30/22 10:16 DC Ondansetron HCl (Zofran) 4 mg 1X ONCE 01/30/22 10:15 01/30/22 10:16 DC Ringer's Solution 1,000 ml @ 1,000 mls/hr 1X ONCE 01/30/22 10:15 01/30/22 11:14 Allergies: Allergies: Allergies Coded Allergies Type Severity Reaction Last Updated Verified Iodinated Contrast Media Allergy Intermediate 05/23/19 Yes NSAIDS (Non-Steroidal Anti-Inflamma Allergy Intermediate 05/23/19 Yes Sulfa (Sulfonamide Antibiotics) Allergy Intermediate 05/23/19 Yes ibuprofen Allergy Intermediate 05/23/19 Yes latex Allergy Intermediate 05/23/19 Yes Physical Exam: PE: Constitutional: Well developed, well nourished, no acute distress, non-toxic appearance. HENT: Normocephalic, atraumatic, bilateral external ears normal, nose normal. Eyes: EOMI, conjunctiva normal, no discharge. Neck: Normal range of motion, no stridor. Abdomen: Soft, no tenderness, no masses, no pulsatile masses. Skin: Warm, dry, no erythema, no rash. Back: No step-off, no midline tenderness, right-sided CVA tenderness appreciated. Neurologic: Alert and oriented x4, normal motor function, normal sensory function, no focal deficits noted. Current Patient Data: Labs: Laboratory Tests Test 01/30/22 09:40 Urine Collection Type Void Urine Color (Auto) Yellow Urine Turbidity Hazy Urine pH (Auto) 6.0 (<5.0-8.0) Urine Specific [place] 1.028 (1.000-1.030) Urine Protein (Auto) Negative mg/dL (Negative) Urine Glucose (Auto)(UA) Negative mg/dL (Negative) Urine Ketones (Auto) Negative mg/dL (Negative) Urine Blood (Auto) Small (Negative) Urine Nitrite Negative (Negative) Urine Bilirubin (Auto) Negative (Negative) Urine Urobilinogen (Auto) Normal mg/dL (Normal) Urine Leukocyte Esterase (Auto) Negative (Negative) Urine RBC 0 /HPF (0-2) Urine WBC 0 /HPF (0-4) Urine Squamous Epithelial Cells Mod /LPF Urine Bacteria Few /HPF (0-FEW) Urine Mucus Slight /LPF Vital Signs: Vital Signs Date Time Temp Pulse Resp B/P (MAP) Pulse Ox O2 Delivery O2 Flow Rate FiO2 01/30/22 10:57 72 20 120/82 (95) 99 Room Air 01/30/22 10:56 36 100 Room Air 01/30/22 09:40 98.0 73 18 143/92 (109) 99 Room Air 98.0 Radiology/Procedures: Radiology/Procedures: PROCEDURE: CT ABDOMEN PELVIS WO CONTRAST Axial CT images of the abdomen and pelvis with coronal and sagittal reformats were performed without contrast per renal colic protocol. Exposure: One or more of the following individualized dose reduction techniques were utilized for this examination: 1. Automated exposure control 2. Adjustment of the mA and/or kV according to patient size 3. Use of iterative reconstruction technique Indication: Reason: r side flank pain, CVA tenderness, dysuria / Spl. Instructions: / History: Comparison: 04/07/2020. Findings: No renal, ureteral, or bladder stones are identified. No hydronephrosis, perinephric fat stranding, or hydroureter are seen bilaterally. Right lower quadrant surgical clips suggestive of cholecystectomy are identified. Patient status post hysterectomy. Cholecystectomy clips are identified. The remainder of the non contrasted abdomen and pelvis is normal in appearance, although evaluation is limited on an unenhanced exam. Impression: 1. No evidence of urolithiasis or urinary obstruction. Electronically signed by: Ward Smith MD (01/30/2022 10:38 AM) [id number] Course & Med Decision Making: Course & Med Decision Making Pertinent Labs and Imaging studies reviewed. (See chart for details) Patient is a 41-year-old female who frequently gets kidney stones and renal infections who presents with right-sided flank pain. Work-up today will include urinalysis as well as CT abdomen pelvis plain. CT negative. Urinalysis negative for infection. Patient possibly has recently passed a stone, but there is no evidence of infection or stone at this time. Patient will be discharged home with instruction to take Tylenol as needed for pain and stay well-hydrated. Urology follow-up was provided for evaluation of recurrent stones and kidney infection. Return precautions were provided. Patient understands and is agreeable to discharge plan. Dragon Disclaimer: Dragon Disclaimer: This electronic medical record was generated, in whole or in part, using a voice recognition dictation system. Departure Departure Impression: Primary Impression: Acute right flank pain Disposition: HOME / SELF CARE / HOMELESS Condition: IMPROVED Referrals: NO PCP (PCP) MONY PARKS MD Patient Instructions: Kidney Stones, [id number] Additional Instructions: EMERGENCY DEPARTMENT GENERAL DISCHARGE INSTRUCTIONS Thank you for coming to [facility] Emergency Department (ED) today and trusting us with you care. We trust that you had a positive experience in our Emergency Department. If you wish to speak to the department management, you may call the director at . YOUR FOLLOW UP INSTRUCTIONS ARE FOLLOWS: 1. Follow up with your primary care doctor. If you do not have a primary doctor, please ask for a resource list of physicians or clinics that may be able to assist you with follow up care. 2. The emergency provider has interpreted your imaging studies, if any were ordered. The radiology lighting specialist also reviewed them. If there is a change in the findings, you will be notified in 48 hours when at all possible. 3. If a lab test or culture has been done, your results will be reviewed and you will be notified if you need a change in treatment. 4. Follow instructions verbalized to you and refer to the printouts if needed. ADDITIONAL INSTRUCTIONS AND INFORMATION: 1. Your care today has been supervised by a physician who is specially trained in emergency care. Many problems require more than one evaluation for a complete diagnosis and treatment. We recommend that you schedule your follow up appointment as recommended to ensure complete treatment of you illness or injury. If you are unable to obtain follow up care and continue to have a problem, or if your condition worsens, we recommend that you return to the ED. 2. We are not able to safely determine your condition over the phone nor are we able to give sound medical advice over the phone. For these safety reasons, if you call for medical advice we will ask you to come to the ED for further evaluation. 3. If you have any questions regarding these discharge instructions please call the ED at . SAFETY INFORMATION: In the interest of safety, wellness, and injury prevention; we encourage you to wear your seat belt, if you smoke; quite smoking, and we encourage family to use a protective helmet for bicycling and other sporting events that present an increased risk for head injury. IF YOUR SYMPTOMS WORSEN OR NEW SYMPTOMS DEVELOP, OR YOU HAVE CONCERNS ABOUT YOUR CONDITION; OR IF YOUR CONDITION WORSENS WHILE YOU ARE WAITING FOR YOUR FOLLOW UP APPOINTMENT; EITHER CONTACT YOUR PRIMARY CARE DOCTOR, THE PHYSICIAN WHOSE NAME AND NUMBER YOU WERE GIVEN, OR RETURN TO THE ED IMMEDIATELY. Scripts Ondansetron (ONDANSETRON ODT) 4 Mg Tab.rapdis 1 TAB PO PRN Q6-8HRS, #20 TAB Prov: PRICE LOO 01/30/22 PRICE LOO Jan 30, 2022 10:51
[2022-01-30 11:03] LABS: BACTERIA,URINE FEW /HPF (0-FEW); RBC,URINE 0 /HPF (0-2); WBC,URINE 0 /HPF (0-4)
[2022-01-30] MEDS ORDERED: ONDA4TAB12 PO (11:25)
[2022-01-30 11:38] VITALS: BP 119/78
== END 2022-01-30 11:47 | disposition home or self-care (01) ==
LOC: ER 09:15
DX: R10.9 Unspecified abdominal pain (principal); I25.2 Old myocardial infarction; F17.200 Nicotine dependence, unspecified, uncomplicated; Z87.440 Personal history of urinary (tract) infections; Z90.89 Acquired absence of other organs; Z90.49 Acquired absence of other specified parts of digestive tract; Z90.710 Acquired absence of both cervix and uterus; Z91.041 Radiographic dye allergy status; Z88.2 Allergy status to sulfonamides; Z91.040 Latex allergy status; Z88.6 Allergy status to analgesic agent
CPT/HCPCS: 74176; 81001; 96361; 96374; 96375; 99284; J2405; J3010; J7120